=== PATIENT | male | born 1965 | race African-American/Black ===

== ENCOUNTER 2025-01-10 21:16 | Observation (INO) | payer OTHER, SELFPAY ==
--- OUTSIDE RECORDS SUMMARY | 2013-08-30 21:33 | XMS_ITS | Continuity of Care Document ---
Author Organization [facility] Address [address] [place] [address] Phone Care Team Providers Care Geodetic Advisor Name Role Phone Nurse, Registered Unavailable Unavailable Allergies, Adverse Reactions, Alerts Substance Reaction Status Criticality No Known allergies Medications Medication Instructions Dosage Effective Dates (start - stop) Status Comments lisinopril 30 mg tablet take 1 tablet by oral route every day 30 MG - Active hydrochlorothiazide 25 mg tablet take 1 tablet by oral route every day 25 MG - Active Paxil 20 mg tablet take 1 tablet by oral route every day 20 MG - Active Procedures Procedure Date OFFICE/OUTPATIENT VISIT, EST Advance Directives Directive Yes / No Effective Date File Name No Information Encounters Encounter Description Practice Location Reason(s) For Visit Diagnoses Date Provider Providers Copied on Encounter [facility], [address], [place], [place], [id number] , tel: [phone] Alf No Information Nurse Registered. [address], [place], [place], [address], . tel:[phone] [facility], [address], [place], [place], [id number] , tel: [phone] [facility] No Information 3 No Information [facility], [address], [place], [place], [id number] , tel: [phone] [facility] No Information 3 No Information OFFICE/OUTPA TIENT VISIT, EST [facility], [address], [place], [place], [address] , tel: [phone] [facility] hypertension (chief complaint) Unspecified essential hypertensionDep ressive disorder, NEC 3 No Information Family History Family Member Type Diagnosis Age At Onset No Information Payers Payer name Insurance type Covered democrat ID Authoriza tion(s) No Information Social History Type Description Quantity Date Captured Comments Sex Male Smoking Status No Information Chief Complaint And Reason For Visit No Information Reason For Referral Reason For Referral No Information History Of Present Illness Encounter Date Complaint History Of Prese nt Illness No Information Functional Status Date Functional Assessmen t No Information Instructions Date Instruction Additional Infor mation Increase activity level Home blood pressure check Take medications as prescribed Assessments Type Assessment Date No Information Patient Care Teams Name Effective Dates (start - stop) Status Members No Information
--- NOTE | ~2025-01-10 | CT_ITS ---
EXAMINATION: CT brain wo con, 01/11/2025 3:00 CDT HISTORY: hypertension, seizure COMPARISON: No comparisons available. Technique: Axial images obtained of the brain without contrast. One or more of the following dose reduction techniques were used: automated exposure control, adjustment of the mA and/or kV according to patient size, use of iterative reconstruction technique. Findings: No acute infarct or parenchymal hemorrhage. No abnormal mass or mass effect. No midline shift. No extra-axial fluid collections. No hydrocephalus. Mastoid air cells unremarkable. Sinuses and orbits unremarkable. No acute fracture. No significant facial or scalp soft tissue swelling evident. No radiopaque foreign body is seen. Impression: 1.No acute intracranial abnormality. Reviewed, dictated and finalized at location A. Impression: 1.No acute intracranial abnormality.
--- NOTE | ~2025-01-10 | CT_ITS ---
EXAMINATION: CT brain wo con DATE: 01/10/2025 22:39 INDICATION: Altered mental status. TECHNIQUE: Computed tomography (CT) of the head was performed without intravenous contrast. The mA was adjusted according to patient size. Iterative reconstruction technique was employed. The dose-length product was 681.00 mGy-cm. COMPARISON: None FINDINGS: There is no intracranial hemorrhage, acute infarction, or abnormal intracranial mass lesion. There is a 2.2 x 1.7 cm arachnoid cyst to the left of the midbrain. The ventricles are normal in size. There is mild mucosal thickening in the paranasal sinuses. There is an old blowout fracture of medial wall of right orbit. There is a trace left mastoid effusion. IMPRESSION: 1. No acute intracranial pathology. Reviewed, dictated and finalized at location E.
--- NOTE | ~2025-01-10 | XR_ITS ---
EXAMINATION: XR chest 1V portable COMPARISON: No comparisons available. HISTORY: Fever FINDINGS: The lungs are clear, no effusion. No pneumothorax. Heart is normal size. Mediastinal and hilar contours are within normal limits. Bony thorax no acute abnormality. Miscellaneous: None Impression: No acute cardiopulmonary abnormality. Reviewed, dictated and finalized at location A. Impression: No acute cardiopulmonary abnormality.
--- NOTE | ~2025-01-10 | MR_ITS ---
EXAMINATION: MR brain/brain stem wo/w con DATE: 01/12/2025 15:13 INDICATION: Seizures. TECHNIQUE: Magnetic resonance imaging (MRI) of the brain and brainstem was performed without and with 11 mL MultiHance intravenous contrast. COMPARISON: Head CT 01/11/2025 FINDINGS: There are dystrophic calcifications in right basal ganglia and left frontal lobe. There are scattered areas of nonspecific increased T2-weighted signal intensity in the cerebral white matter, which is within normal limits for the patient's age. There is a 2.3 x 1.7 cm arachnoid cyst to the left of the midbrain. There is no acute intracranial hemorrhage or acute infarction. There is a 5 mm lesion in left frontal lobe with faint contrast enhancement and decreased susceptibility weighted signal intensity in the left frontal lobe. The ventricles are normal in size. The orbits are normal. There is mild mucosal thickening in the paranasal sinuses. There is a small left mastoid effusion. IMPRESSION: 1. Small enhancing lesion in the left frontal lobe, which may be a cavernoma, telangiectasia, or neoplasm. Reviewed, dictated and finalized at location E. IMPRESSION: 1. Small enhancing lesion in the left frontal lobe, which may be a cavernoma, t elangiectasia, or neoplasm.
[2025-01-10 21:18] VITALS: BP 209/99; PULSE 54; RESP 18; TEMP 36.3; O2SAT 100
--- NOTE | 2025-01-10 21:25 | ECG_ITS ---
Test Date: 2025-01-10 21:27:17 Measurements Intervals [place] Rate: 50 P: 67 FL: 137 QRS: 42 QRSD: 78 T: 69 QT: 469 QTc: 431 Interpretive Statements SINUS BRADYCARDIA CANNOT EXCLUDE PREVIOUS SEPTAL [place] BORDERLINE ECG No previous ECG available for comparison Electronically Signed On 01-11-2025 12:22:42 CDT by Bernard Pedersen M.D.
[2025-01-10 21:37] VITALS: BP 209/99; PULSE 54; RESP 18; TEMP 36.3; O2SAT 100
[2025-01-10 21:41] LABS: Hematocrit 42.4 % (42.0-52.0); Hemoglobin 13.8 g/dL (14.0-18.0); Immature Granulocyte Percent A 0.2 % (0-0.5); Lymphocytes Absolute Auto 1.29 K/mm3 (0.9-3.2); Mean Corpuscular HGB Conc 32.5 g/dl (32-36); Mean Corpuscular Hemoglobin 28.5 pg (26-34); Mean Corpuscular Volume 87.6 fl (80-100); Nucleated Red Blood Cells Absolute Auto 0.000 K/mm3 (0.0-0.012); Nucleated Red Blood Cells Perc 0.0 % (0.0-0.2); Platelet Count Result 217 k/mm3 (150-375); Red Blood Count 4.84 M/mm3 (4.6-6.20); White Blood Count 4.1 K/mm3 (4.5-10.0)
[2025-01-10 21:56] LABS: Alanine Aminotransferase 23 U/L (6-50); Albumin Level 4.5 g/dL (3.5-5.1); Alkaline Phosphatase 78 U/L (38-126); Anion Gap 9 mmol/L (4-12); Aspartate Amino Transferase 37 U/L (17-59); Bilirubin,Total 1.1 mg/dL (0.2-1.3); Blood Urea Nitrogen 14 mg/dL (9-20); Calcium 9.1 mg/dL (8.4-10.2); Carbon Dioxide 27 mmol/L (22-30); Chloride 102 mmol/L (98-107); Estimated CRCL calculation 57 ml/min; Estimated Glomerular Filt Rate > 60; Glucose 109 mg/dL (65-110); Potassium 4.1 mmol/L (3.4-5.0); Sodium 138 mmol/L (137-145); Total Protein 7.8 g/dL (6.3-8.2)
[2025-01-10 21:57] LABS: INR 1.1; Partial Thromboplastin Time 26.2 Seconds (22.3-36.8); Prothrombin Time 14.0 Seconds (11.1-14.7)
--- NOTE | 2025-01-10 22:36 | ED.AMS ---
HPI - Altered Mental Status General Chief Complaint: Altered Mental Status <Mary Umana PA-C - Last Filed: 01/11/25 03:12> Stated Complaint: NOT ACTING RIGHT; BLANK STARE <Mary Umana PA-C - Last Filed: 01/11/25 03:12> Time Seen by Provider: 01/10/25 22:20 <Mary Umana PA-C - Last Filed: 01/11/25 03:12> Source: patient <Mary Umana PA-C - Last Filed: 01/11/25 03:12> Mode of arrival: EMS <Mary Umana PA-C - Last Filed: 01/11/25 03:12> Limitations: altered mental status <Mary Umana PA-C - Last Filed: 01/11/25 03:12> History of Present Illness HPI narrative: This is a 59 year old male that presents to the ER for altered mental status. Patient was being booked at the [facility] and they noted he seemed confused, staring off. Patient alter and orient at this time. Reports history of hypertension. He has not taken his blood pressure medication in a couple of days. No pain, complaints currently. <Mary Umana PA-C - Last Filed: 01/11/25 03:12> Related Data Allergies/Adverse Reactions: Allergies Allergy/AdvReac Type Severity Reaction Status Date / Time No Known Allergies Allergy Verified 01/11/25 00:01 <Mary Umana PA-C - Last Filed: 01/11/25 03:12> Review of Systems Review of Systems: All systems reviewed & are unremarkable except as noted in HPI and below <Mary Umana PA-C - Last Filed: 01/11/25 03:12> [facility] Past Medical History Medical History: Medical History (Updated 01/11/25 @ 03:12 by Mary Umana PA-C) Hypertension <Mary Umana PA-C - Last Filed: 01/11/25 03:12> Exam Narrative: GENERAL: Well-appearing, well-nourished, and in no acute distress. HEAD: Normocephalic, atraumatic. EYES: PERRLA and EOMI. ENT: Nares clear, no rhinorrhea or epistaxis. Mucous membranes moist. Oropharynx without tonsillar hypertrophy exudate or other lesions. Bilateral TMs pearly boyle non-bulging NECK: Supple. No adenopathy or masses. CHEST: Clear to auscultation. No respiratory distress. No wheezes rales or rhonchi HEART: Regular rate and rhythm. No murmur heard. Normal peripheral pulses. ABDOMEN: Soft, nontender, nondistended, normal active bowel sounds. EXTREMITIES: Normal range of motion. No edema. Strength equal in bilateral upper and lower extremities (5/5) SKIN: Warm, dry, no rash. NEURO: No focal deficits. Alert and oriented x3. Cranial nerves 2-12 grossly intact PSYCH: Normal mood and affect <Mary Umana PA-C - Last Filed: 01/11/25 03:12> Course Course Emergency Course: Called to bedside as patient appears to have had a seizure. Patient appears post ictal, drowsy. Hypertensive, tachycardic, profusely sweating. Concerned for possible alcohol withdrawal. Given Keppra, Valium, phenobarbital. <Mary Umana PA-C - Last Filed: 01/11/25 03:12> WOMEN'S APPAREL SALESPERSON/PA Physician Supervision This visit was performed by both a physician and an APC; I performed all aspects of the medical decision making component of this evaluation as documented. <Sue Lee MD - Last Filed: 01/11/25 03:39> Vital Signs Vital signs: Vital Signs Temperature 97.4 F L 01/10/25 21:18 Pulse Rate 54 L 01/10/25 21:18 Respiratory Rate 18 01/10/25 21:18 Blood Pressure 209/99 H 01/10/25 21:18 Pulse Oximetry 100 01/10/25 21:18 Oxygen Delivery Room Air 01/10/25 21:18 Temperature 97.4 F L 01/10/25 21:37 Pulse Rate 76 01/11/25 02:53 Respiratory Rate 18 01/11/25 02:53 Blood Pressure 191/111 H 01/11/25 02:53 Pulse Oximetry 100 01/11/25 02:53 Oxygen Delivery Room Air 01/11/25 00:30 <Mary Umana PA-C - Last Filed: 01/11/25 03:12> Vital Signs Temperature 97.4 F L 01/10/25 21:18 Pulse Rate 54 L 01/10/25 21:18 Respiratory Rate 18 01/10/25 21:18 Blood Pressure 209/99 H 01/10/25 21:18 Pulse Oximetry 100 01/10/25 21:18 Oxygen Delivery Room Air 01/10/25 21:18 Temperature 97.4 F L 01/10/25 21:37 Pulse Rate 76 01/11/25 02:53 Respiratory Rate 18 01/11/25 02:53 Blood Pressure 191/111 H 01/11/25 02:53 Pulse Oximetry 100 01/11/25 02:53 Oxygen Delivery Room Air 01/11/25 00:30 <Sue Lee MD - Last Filed: 01/11/25 03:39> MDM - Altered Mental Status MDM Narrative Medical decision making narrative: 59M here from longterm for bizarre behavior, high blood pressure; workup essentially unremarkable, patient then had a possible seizure here in the ER (on monitors his heart rate shot, and when we went to the room, he appeared to be postictal, diaphoretic. He is now becoming more awake and coming more to baseline. He is quite hypertensive and tachycardic, we do have high suspicion for alcohol withdrawal causing all the symptoms, especially since his alcohol level here is negative and he was in longterm all day. After dose of phenobarbital here, his symptoms have completely resolved, blood pressure is now 130s over 80s, heart rate down ascites, resting very comfortably now. I do feel he needs to be admitted, repeat CT brain obtained per two needle machine operator request, is negative. Decal Applier feels patient is stable for IMU. Discussed with hospitalist for admission. <Sue Lee MD - Last Filed: 01/11/25 03:39> Differential Diagnosis Differential diagnosis: Likely alcoholic intoxication, altered mental status, delirium, subarachnoid hemorrhage, sepsis and other (seizure, alcohol withdrawal, substance abuse, intoxication) <Mary Umana PA-C - Last Filed: 01/11/25 03:12> Lab Data Attestation: I reviewed the patient's lab results. <Mary Umana PA-C - Last Filed: 01/11/25 03:12> Result diagrams: 01/11/25 02:51 01/11/25 02:51 <Mary Umana PA-C - Last Filed: 01/11/25 03:12> Labs: Lab Results 01/10/25 01/10/25 01/10/25 Range/Units 21:28 21:30 23:59 WBC 4.1 L (4.5-10.0) K/mm3 RBC 4.84 (4.6-6.20) M/mm3 Hgb 13.8 L (14.0-18.0) g/dL Hct 42.4 (42.0-52.0) % MCV 87.6 (80-100) fl MCH 28.5 (26-34) pg MCHC 32.5 (32-36) g/dl RDW 13.3 (11.5-14.5) % Plt Count 217 (150-375) k/mm3 MPV 10.3 (7.4-10.4) fl Immature Gran % (Auto) 0.2 (0-0.5) % Neut % (Auto) 58.8 (45.5-73.1) % Lymph % (Auto) 31.5 (18.3-44.2) % Bowie % (Auto) 8.8 H (2.6-8.5) % Eos % (Auto) 0.2 (0-4.4) % Baso % (Auto) 0.5 (0.2-1.2) % Lymph # (Auto) 1.29 (0.9-3.2) K/mm3 Bowie # (Auto) 0.4 (0.1-0.6) K/mm3 Eos # (Auto) 0.0 (0-0.3) K/mm3 Baso # (Auto) 0.0 (0.0-0.1) K/mm3 Abs Immat Gran (auto) 0.01 (0.00-0.031) K/mm3 Absolute Neuts (auto) 2.4 (1.3-6.7) K/mm3 Absolute Nucleated RBC 0.000 (0.0-0.012) K/mm3 Nucleated RBC % 0.0 (0.0-0.2) % PT 14.0 (11.1-14.7) Seconds INR 1.1 APTT 26.2 (22.3-36.8) Seconds Sodium 138 (137-145) mmol/L Potassium 4.1 (3.4-5.0) mmol/L Chloride 102 (98-107) mmol/L Carbon Dioxide 27 (22-30) mmol/L Anion Gap 9 (4-12) mmol/L BUN 14 (9-20) mg/dL Creatinine 1.12 (0.7-1.3) mg/dL Estim Creat Clear Calc 57 ml/min Estimated GFR > 60 (59 - ) Glucose 109 (65-110) mg/dL POC Capillary Glucose 109 H (65-105) mg/dl Lactic Acid (0.7-2.0) mmol/L Calcium 9.1 (8.4-10.2) mg/dL Phosphorus (2.5-4.5) mg/dL Magnesium (1.6-2.3) mg/dL Total Bilirubin 1.1 (0.2-1.3) mg/dL AST 37 (17-59) U/L ALT 23 (6-50) U/L Alkaline Phosphatase 78 (38-126) U/L Ammonia (9-30) umol/L Total Creatine Kinase (55-170) U/L Total Protein 7.8 (6.3-8.2) g/dL Albumin 4.5 (3.5-5.1) g/dL Prolactin Urine Color Yellow (Yellow) Urine Appearance Clear (Clear) Urine pH 7.5 (5.0-9.0) Ur Specific [place] 1.020 (1.001-1.035) Urine Protein 1+ H (Negative) mg/dL Urine Glucose (UA) Trace H (Negative) mg/dL Urine Ketones 1+ H (Negative) mg/dL Ur Blood (Man) Negative (Negative) Urine Nitrate Negative (Negative) Urine Bilirubin Negative (Negative) Urine Urobilinogen 1.0 (<2.0) mg/dL Leukocyte Esterase Rfl Negative (Negative) MARY/UL Urine RBC 0-2 (0-2) /hpf Urine WBC 0-5 (0-3) /hpf Ur Squamous Epith Cells None seen (Few) /hpf Urine Bacteria None seen /hpf Urine Casts 0-2 Urine Opiates Screen Negative (Negative) Urine Methadone Screen Negative (Negative) Ur Barbiturates Screen Negative (Negative) Ur Phencyclidine Scrn Negative (Negative) Ur Amphetamine Screen Negative (Negative) U Benzodiazepines Scrn Negative (Negative) Urine Cocaine Screen Negative (Negative) U Cannabinoids Screen Positive A (Negative) Ethyl Alcohol < 10 (<10) mg/dL 01/11/25 01/11/25 01/11/25 Range/Units 00:33 00:43 00:49 WBC (4.5-10.0) K/mm3 RBC (4.6-6.20) M/mm3 Hgb (14.0-18.0) g/dL Hct (42.0-52.0) % MCV (80-100) fl MCH (26-34) pg MCHC (32-36) g/dl RDW (11.5-14.5) % Plt Count (150-375) k/mm3 MPV (7.4-10.4) fl Immature Gran % (Auto) (0-0.5) % Neut % (Auto) (45.5-73.1) % Lymph % (Auto) (18.3-44.2) % Bowie % (Auto) (2.6-8.5) % Eos % (Auto) (0-4.4) % Baso % (Auto) (0.2-1.2) % Lymph # (Auto) (0.9-3.2) K/mm3 Bowie # (Auto) (0.1-0.6) K/mm3 Eos # (Auto) (0-0.3) K/mm3 Baso # (Auto) (0.0-0.1) K/mm3 Abs Immat Gran (auto) (0.00-0.031) K/mm3 Absolute Neuts (auto) (1.3-6.7) K/mm3 Absolute Nucleated RBC (0.0-0.012) K/mm3 Nucleated RBC % (0.0-0.2) % PT (11.1-14.7) Seconds INR APTT (22.3-36.8) Seconds Sodium (137-145) mmol/L Potassium (3.4-5.0) mmol/L Chloride (98-107) mmol/L Carbon Dioxide (22-30) mmol/L Anion Gap (4-12) mmol/L BUN (9-20) mg/dL Creatinine (0.7-1.3) mg/dL Estim Creat Clear Calc ml/min Estimated GFR (59 - ) Glucose (65-110) mg/dL POC Capillary Glucose 145 H (65-105) mg/dl Lactic Acid 19.9 H* (0.7-2.0) mmol/L Calcium (8.4-10.2) mg/dL Phosphorus (2.5-4.5) mg/dL Magnesium 2.0 (1.6-2.3) mg/dL Total Bilirubin (0.2-1.3) mg/dL AST (17-59) U/L ALT (6-50) U/L Alkaline Phosphatase (38-126) U/L Ammonia (9-30) umol/L Total Creatine Kinase 465 H (55-170) U/L Total Protein (6.3-8.2) g/dL Albumin (3.5-5.1) g/dL Prolactin Urine Color (Yellow) Urine Appearance (Clear) Urine pH (5.0-9.0) Ur Specific [place] (1.001-1.035) Urine Protein (Negative) mg/dL Urine Glucose (UA) (Negative) mg/dL Urine Ketones (Negative) mg/dL Ur Blood (Man) (Negative) Urine Nitrate (Negative) Urine Bilirubin (Negative) Urine Urobilinogen (<2.0) mg/dL Leukocyte Esterase Rfl (Negative) MARY/UL Urine RBC (0-2) /hpf Urine WBC (0-3) /hpf Ur Squamous Epith Cells (Few) /hpf Urine Bacteria /hpf Urine Casts Urine Opiates Screen (Negative) Urine Methadone Screen (Negative) Ur Barbiturates Screen (Negative) Ur Phencyclidine Scrn (Negative) Ur Amphetamine Screen (Negative) U Benzodiazepines Scrn (Negative) Urine Cocaine Screen (Negative) U Cannabinoids Screen (Negative) Ethyl Alcohol (<10) mg/dL 01/11/25 Range/Units 02:51 WBC 6.5 (4.5-10.0) K/mm3 RBC 5.02 (4.6-6.20) M/mm3 Hgb 14.3 (14.0-18.0) g/dL Hct 45.2 (42.0-52.0) % MCV 90.0 (80-100) fl MCH 28.5 (26-34) pg MCHC 31.6 L (32-36) g/dl RDW 13.4 (11.5-14.5) % Plt Count 179 (150-375) k/mm3 MPV 10.3 (7.4-10.4) fl Immature Gran % (Auto) 0.3 (0-0.5) % Neut % (Auto) 83.1 H (45.5-73.1) % Lymph % (Auto) 10.6 L (18.3-44.2) % Bowie % (Auto) 5.5 (2.6-8.5) % Eos % (Auto) 0.0 (0-4.4) % Baso % (Auto) 0.5 (0.2-1.2) % Lymph # (Auto) 0.69 L (0.9-3.2) K/mm3 Bowie # (Auto) 0.4 (0.1-0.6) K/mm3 Eos # (Auto) 0.0 (0-0.3) K/mm3 Baso # (Auto) 0.0 (0.0-0.1) K/mm3 Abs Immat Gran (auto) 0.02 (0.00-0.031) K/mm3 Absolute Neuts (auto) 5.4 (1.3-6.7) K/mm3 Absolute Nucleated RBC 0.000 (0.0-0.012) K/mm3 Nucleated RBC % 0.0 (0.0-0.2) % PT (11.1-14.7) Seconds INR APTT (22.3-36.8) Seconds Sodium 138 (137-145) mmol/L Potassium 3.7 (3.4-5.0) mmol/L Chloride 107 (98-107) mmol/L Carbon Dioxide 16 L (22-30) mmol/L Anion Gap 15 H (4-12) mmol/L BUN 12 (9-20) mg/dL Creatinine 1.09 (0.7-1.3) mg/dL Estim Creat Clear Calc 58 ml/min Estimated GFR > 60 (59 - ) Glucose 87 (65-110) mg/dL POC Capillary Glucose (65-105) mg/dl Lactic Acid 6.8 H* (0.7-2.0) mmol/L Calcium 9.1 (8.4-10.2) mg/dL Phosphorus 1.8 L (2.5-4.5) mg/dL Magnesium 2.3 (1.6-2.3) mg/dL Total Bilirubin 1.3 (0.2-1.3) mg/dL AST 38 (17-59) U/L ALT 27 (6-50) U/L Alkaline Phosphatase 81 (38-126) U/L Ammonia 63 H (9-30) umol/L Total Creatine Kinase 445 H (55-170) U/L Total Protein 8.0 (6.3-8.2) g/dL Albumin 4.7 (3.5-5.1) g/dL Prolactin Pending Urine Color (Yellow) Urine Appearance (Clear) Urine pH (5.0-9.0) Ur Specific [place] (1.001-1.035) Urine Protein (Negative) mg/dL Urine Glucose (UA) (Negative) mg/dL Urine Ketones (Negative) mg/dL Ur Blood (Man) (Negative) Urine Nitrate (Negative) Urine Bilirubin (Negative) Urine Urobilinogen (<2.0) mg/dL Leukocyte Esterase Rfl (Negative) MARY/UL Urine RBC (0-2) /hpf Urine WBC (0-3) /hpf Ur Squamous Epith Cells (Few) /hpf Urine Bacteria /hpf Urine Casts Urine Opiates Screen (Negative) Urine Methadone Screen (Negative) Ur Barbiturates Screen (Negative) Ur Phencyclidine Scrn (Negative) Ur Amphetamine Screen (Negative) U Benzodiazepines Scrn (Negative) Urine Cocaine Screen (Negative) U Cannabinoids Screen (Negative) Ethyl Alcohol (<10) mg/dL <Mary Umana PA-C - Last Filed: 01/11/25 03:12> Lab Results 01/10/25 01/10/25 01/10/25 Range/Units 21:28 21:30 23:59 WBC 4.1 L (4.5-10.0) K/mm3 RBC 4.84 (4.6-6.20) M/mm3 Hgb 13.8 L (14.0-18.0) g/dL Hct 42.4 (42.0-52.0) % MCV 87.6 (80-100) fl MCH 28.5 (26-34) pg MCHC 32.5 (32-36) g/dl RDW 13.3 (11.5-14.5) % Plt Count 217 (150-375) k/mm3 MPV 10.3 (7.4-10.4) fl Immature Gran % (Auto) 0.2 (0-0.5) % Neut % (Auto) 58.8 (45.5-73.1) % Lymph % (Auto) 31.5 (18.3-44.2) % Bowie % (Auto) 8.8 H (2.6-8.5) % Eos % (Auto) 0.2 (0-4.4) % Baso % (Auto) 0.5 (0.2-1.2) % Lymph # (Auto) 1.29 (0.9-3.2) K/mm3 [place] # (Auto) 0.4 (0.1-0.6) K/mm3 Eos # (Auto) 0.0 (0-0.3) K/mm3 Baso # (Auto) 0.0 (0.0-0.1) K/mm3 Abs Immat Gran (auto) 0.01 (0.00-0.031) K/mm3 Absolute Neuts (auto) 2.4 (1.3-6.7) K/mm3 Absolute Nucleated RBC 0.000 (0.0-0.012) K/mm3 Nucleated RBC % 0.0 (0.0-0.2) % PT 14.0 (11.1-14.7) Seconds INR 1.1 APTT 26.2 (22.3-36.8) Seconds Sodium 138 (137-145) mmol/L Potassium 4.1 (3.4-5.0) mmol/L Chloride 102 (98-107) mmol/L Carbon Dioxide 27 (22-30) mmol/L Anion Gap 9 (4-12) mmol/L BUN 14 (9-20) mg/dL Creatinine 1.12 (0.7-1.3) mg/dL Estim Creat Clear Calc 57 ml/min Estimated GFR > 60 (59 - ) Glucose 109 (65-110) mg/dL POC Capillary Glucose 109 H (65-105) mg/dl Lactic Acid (0.7-2.0) mmol/L Calcium 9.1 (8.4-10.2) mg/dL Phosphorus (2.5-4.5) mg/dL Magnesium (1.6-2.3) mg/dL Total Bilirubin 1.1 (0.2-1.3) mg/dL AST 37 (17-59) U/L ALT 23 (6-50) U/L Alkaline Phosphatase 78 (38-126) U/L Ammonia (9-30) umol/L Total Creatine Kinase (55-170) U/L Total Protein 7.8 (6.3-8.2) g/dL Albumin 4.5 (3.5-5.1) g/dL Prolactin Urine Color Yellow (Yellow) Urine Appearance Clear (Clear) Urine pH 7.5 (5.0-9.0) Ur Specific [place] 1.020 (1.001-1.035) Urine Protein 1+ H (Negative) mg/dL Urine Glucose (UA) Trace H (Negative) mg/dL Urine Ketones 1+ H (Negative) mg/dL Ur Blood (Man) Negative (Negative) Urine Nitrate Negative (Negative) Urine Bilirubin Negative (Negative) Urine Urobilinogen 1.0 (<2.0) mg/dL Leukocyte Esterase Rfl Negative (Negative) MARY/UL Urine RBC 0-2 (0-2) /hpf Urine WBC 0-5 (0-3) /hpf Ur Squamous Epith Cells None seen (Few) /hpf Urine Bacteria None seen /hpf Urine Casts 0-2 Urine Opiates Screen Negative (Negative) Urine Methadone Screen Negative (Negative) Ur Barbiturates Screen Negative (Negative) Ur Phencyclidine Scrn Negative (Negative) Ur Amphetamine Screen Negative (Negative) U Benzodiazepines Scrn Negative (Negative) Urine Cocaine Screen Negative (Negative) U Cannabinoids Screen Positive A (Negative) Ethyl Alcohol < 10 (<10) mg/dL 01/11/25 01/11/25 01/11/25 Range/Units 00:33 00:43 00:49 WBC (4.5-10.0) K/mm3 RBC (4.6-6.20) M/mm3 Hgb (14.0-18.0) g/dL Hct (42.0-52.0) % MCV (80-100) fl MCH (26-34) pg MCHC (32-36) g/dl RDW (11.5-14.5) % Plt Count (150-375) k/mm3 MPV (7.4-10.4) fl Immature Gran % (Auto) (0-0.5) % Neut % (Auto) (45.5-73.1) % Lymph % (Auto) (18.3-44.2) % Bowie % (Auto) (2.6-8.5) % Eos % (Auto) (0-4.4) % Baso % (Auto) (0.2-1.2) % Lymph # (Auto) (0.9-3.2) K/mm3 Bowie # (Auto) (0.1-0.6) K/mm3 Eos # (Auto) (0-0.3) K/mm3 Baso # (Auto) (0.0-0.1) K/mm3 Abs Immat Gran (auto) (0.00-0.031) K/mm3 Absolute Neuts (auto) (1.3-6.7) K/mm3 Absolute Nucleated RBC (0.0-0.012) K/mm3 Nucleated RBC % (0.0-0.2) % PT (11.1-14.7) Seconds INR APTT (22.3-36.8) Seconds Sodium (137-145) mmol/L Potassium (3.4-5.0) mmol/L Chloride (98-107) mmol/L Carbon Dioxide (22-30) mmol/L Anion Gap (4-12) mmol/L BUN (9-20) mg/dL Creatinine (0.7-1.3) mg/dL Estim Creat Clear Calc ml/min Estimated GFR (59 - ) Glucose (65-110) mg/dL POC Capillary Glucose 145 H (65-105) mg/dl Lactic Acid 19.9 H* (0.7-2.0) mmol/L Calcium (8.4-10.2) mg/dL Phosphorus (2.5-4.5) mg/dL Magnesium 2.0 (1.6-2.3) mg/dL Total Bilirubin (0.2-1.3) mg/dL AST (17-59) U/L ALT (6-50) U/L Alkaline Phosphatase (38-126) U/L Ammonia (9-30) umol/L Total Creatine Kinase 465 H (55-170) U/L Total Protein (6.3-8.2) g/dL Albumin (3.5-5.1) g/dL Prolactin Urine Color (Yellow) Urine Appearance (Clear) Urine pH (5.0-9.0) Ur Specific [place] (1.001-1.035) Urine Protein (Negative) mg/dL Urine Glucose (UA) (Negative) mg/dL Urine Ketones (Negative) mg/dL Ur Blood (Man) (Negative) Urine Nitrate (Negative) Urine Bilirubin (Negative) Urine Urobilinogen (<2.0) mg/dL Leukocyte Esterase Rfl (Negative) MARY/UL Urine RBC (0-2) /hpf Urine WBC (0-3) /hpf Ur Squamous Epith Cells (Few) /hpf Urine Bacteria /hpf Urine Casts Urine Opiates Screen (Negative) Urine Methadone Screen (Negative) Ur Barbiturates Screen (Negative) Ur Phencyclidine Scrn (Negative) Ur Amphetamine Screen (Negative) U Benzodiazepines Scrn (Negative) Urine Cocaine Screen (Negative) U Cannabinoids Screen (Negative) Ethyl Alcohol (<10) mg/dL 01/11/25 Range/Units 02:51 WBC 6.5 (4.5-10.0) K/mm3 RBC 5.02 (4.6-6.20) M/mm3 Hgb 14.3 (14.0-18.0) g/dL Hct 45.2 (42.0-52.0) % MCV 90.0 (80-100) fl MCH 28.5 (26-34) pg MCHC 31.6 L (32-36) g/dl RDW 13.4 (11.5-14.5) % Plt Count 179 (150-375) k/mm3 MPV 10.3 (7.4-10.4) fl Immature Gran % (Auto) 0.3 (0-0.5) % Neut % (Auto) 83.1 H (45.5-73.1) % Lymph % (Auto) 10.6 L (18.3-44.2) % Bowie % (Auto) 5.5 (2.6-8.5) % Eos % (Auto) 0.0 (0-4.4) % Baso % (Auto) 0.5 (0.2-1.2) % Lymph # (Auto) 0.69 L (0.9-3.2) K/mm3 Bowie # (Auto) 0.4 (0.1-0.6) K/mm3 Eos # (Auto) 0.0 (0-0.3) K/mm3 Baso # (Auto) 0.0 (0.0-0.1) K/mm3 Abs Immat Gran (auto) 0.02 (0.00-0.031) K/mm3 Absolute Neuts (auto) 5.4 (1.3-6.7) K/mm3 Absolute Nucleated RBC 0.000 (0.0-0.012) K/mm3 Nucleated RBC % 0.0 (0.0-0.2) % PT (11.1-14.7) Seconds INR APTT (22.3-36.8) Seconds Sodium 138 (137-145) mmol/L Potassium 3.7 (3.4-5.0) mmol/L Chloride 107 (98-107) mmol/L Carbon Dioxide 16 L (22-30) mmol/L Anion Gap 15 H (4-12) mmol/L BUN 12 (9-20) mg/dL Creatinine 1.09 (0.7-1.3) mg/dL Estim Creat Clear Calc 58 ml/min Estimated GFR > 60 (59 - ) Glucose 87 (65-110) mg/dL POC Capillary Glucose (65-105) mg/dl Lactic Acid 6.8 H* (0.7-2.0) mmol/L Calcium 9.1 (8.4-10.2) mg/dL Phosphorus 1.8 L (2.5-4.5) mg/dL Magnesium 2.3 (1.6-2.3) mg/dL Total Bilirubin 1.3 (0.2-1.3) mg/dL AST 38 (17-59) U/L ALT 27 (6-50) U/L Alkaline Phosphatase 81 (38-126) U/L Ammonia 63 H (9-30) umol/L Total Creatine Kinase 445 H (55-170) U/L Total Protein 8.0 (6.3-8.2) g/dL Albumin 4.7 (3.5-5.1) g/dL Prolactin Pending Urine Color (Yellow) Urine Appearance (Clear) Urine pH (5.0-9.0) Ur Specific [place] (1.001-1.035) Urine Protein (Negative) mg/dL Urine Glucose (UA) (Negative) mg/dL Urine Ketones (Negative) mg/dL Ur Blood (Man) (Negative) Urine Nitrate (Negative) Urine Bilirubin (Negative) Urine Urobilinogen (<2.0) mg/dL Leukocyte Esterase Rfl (Negative) MARY/UL Urine RBC (0-2) /hpf Urine WBC (0-3) /hpf Ur Squamous Epith Cells (Few) /hpf Urine Bacteria /hpf Urine Casts Urine Opiates Screen (Negative) Urine Methadone Screen (Negative) Ur Barbiturates Screen (Negative) Ur Phencyclidine Scrn (Negative) Ur Amphetamine Screen (Negative) U Benzodiazepines Scrn (Negative) Urine Cocaine Screen (Negative) U Cannabinoids Screen (Negative) Ethyl Alcohol (<10) mg/dL <Sue Lee MD - Last Filed: 01/11/25 03:39> Imaging Data Radiologist's impression: CT brain: No acute intracranial hemorrhage. No midline shift or mass effect. The territorial boyle-white matter differentiation is maintained throughout. The ventricles and sulci are commensurate with age <Mary Umana PA-C - Last Filed: 01/11/25 03:12> Critical Care Time Critical Care Time Critical Care Time: Yes <Mary Umana PA-C - Last Filed: 01/11/25 03:12> Total Critical Care Time: 35 <Mary Umana PA-C - Last Filed: 01/11/25 03:12> 45 <Sue Lee MD - Last Filed: 01/11/25 03:39> Discharge Plan Discharge Clinical Impression: Seizure Altered mental status Qualifiers: Altered mental status type: unspecified Qualified Code(s): R41.82 - Altered mental status, unspecified <Mary Umana PA-C - Last Filed: 01/11/25 03:12> Patient Disposition: Still a Patient <Mary Umana PA-C - Last Filed: 01/11/25 03:12> Condition: Serious <Mary Umana PA-C - Last Filed: 01/11/25 03:12> Patient Language: Romansh <Mary Umana PA-C - Last Filed: 01/11/25 03:12> Follow-up/Referrals: UNKNOWN,DOCTOR [Primary Care Provider] <Mary Umana PA-C - Last Filed: 01/11/25 03:12>
[2025-01-10 23:00] VITALS: BP 223/102; PULSE 48; RESP 16; O2SAT 100
[2025-01-10 23:31] VITALS: BP 184/101; PULSE 63; RESP 19; O2SAT 100
[2025-01-11] VITALS (19 sets, daily range): BP systolic 142–224; BP diastolic 77–119; PULSE 73–131; RESP 15–30; TEMP 36.3–37.8; O2SAT 97–100; BMI 19.5
[2025-01-11] MEDS: Please add drug allergy info to patient profile. 1 EACH XX (00:02)
[2025-01-11 00:14] LABS: Add Urine Microscopic? YES; Appearance Urine Clear (Clear); Glucose Urine UA Trace mg/dL (Negative); Leukocyte Esterase Ur Negative LEU/UL (Negative); Nitrate Urine Negative (Negative); Non Pathogenic Casts 0-2; Specific Grav Ur 1.020 (1.001-1.035)
[2025-01-11] MEDS: diazePAM INJ (*CRX) 10 MG/2 ML SYRINGE 5 MG IV PUSH (00:30)
[2025-01-11 00:34] LABS: Cannabinoid Screen Urine Positive (Negative)
[2025-01-11] MEDS: levETIRAcetam 1000MG/NACL100ML 1,000 MG/100 ML BAG 400 MG IVPB (00:35)
[2025-01-11] MEDS: PHENobarbitaL sodium (*CRX) 130 MG/ML VIAL 260 MG IV PUSH (00:56)
[2025-01-11] MEDS: SODIUM CHLORIDE 0.9% IV 1,000 ML 999 ML (01:00)
[2025-01-11 01:06] LABS: Creatine Kinase 465 U/L (55-170)
--- NOTE | 2025-01-11 01:23 | PC.NURSE ---
At approximately 0025, this RN looked at the patient monitor and noticed pt heart rate increasing between 120s and 210s. Upon entering pt room, this RN found patient extremely diaphoretic with snoring respirations and hypersalivating. SOHAN Hernandez notified and came to bedside. VORB for 5mg IV diazepam, 1000mg keppra, and 260mg phenobarbital. 2nd IV, lactic, and 1st set of blood cultures obtained at this time.
[2025-01-11] MEDS: THIAMINE 500 MG/NS 100 ML 500 MG/100 ML BAG 200 MG IVPB (01:44)
--- NOTE | 2025-01-11 02:04 | P.HP_ITS ---
H&P: HPI History of Present Illness Date/Time: 01/11/25 02:04 Chief Complaint: Confusion, possible seizure Narrative: 59-year-old male with unknown PMH brought in from [facility] for possible seizure. No JERRY present upon my evaluation. History provided by ER clinician. Document brought in from the group home reports patient arrested because probation violation. Reports seizure? Urinated on himself, leg twitching. While in the ER the patient was providing minimal history and when asked why he was brought in he reports chicken. At some point, ER staff suspected seizure as he appeared to be postictal after his telemetry demonstrated tachycardia. Patient given Valium, phenobarbital, Keppra. Afterwards his lactic acid was 19. Blood pressure 224/95, improving to 154/91 after phenobarbital and Keppra. Sinus tachycardia also resolved. Afebrile. Saturating 97% on room air. Laboratory evaluation revealed WBC of 4.1, hemoglobin 13.8, INR 1.1, BUN 14, serum creatinine 1.12, magnesium not checked. CPK 465, glucose 145. Urinalysis trace glucose, 1+ ketones and protein. U tox positive for cannabinoids, serum alcohol level less than 10. Review of Systems Review of Systems: All systems reviewed & are unremarkable except as noted in HPI and below (Subjective) [facility] Past Medical History Medical History (Updated 01/11/25 @ 02:15 by Margaux Garcia MD) Hypertension Meds Home Medications and Allergies Allergies Allergy/AdvReac Type Severity Reaction Status Date / Time No Known Allergies Allergy Verified 01/11/25 00:01 Vital Signs Vital Signs - 24 hr 01/10/25 21:18 01/10/25 21:31 01/10/25 21:37 Temperature 97.4 F L 97.4 F L Pulse Rate 54 L 54 L Respiratory Rate 18 18 Blood Pressure 209/99 H 209/99 H Pulse Oximetry 100 100 Oxygen Delivery Room Air Room Air 01/10/25 23:00 01/10/25 23:31 01/11/25 00:00 Temperature Pulse Rate 48 L 63 74 Respiratory Rate 16 19 18 Blood Pressure 223/102 H 184/101 H 194/104 H Pulse Oximetry 100 100 100 Oxygen Delivery 01/11/25 00:30 01/11/25 00:30 01/11/25 00:51 Temperature Pulse Rate 131 H 116 H Respiratory Rate 30 H 24 H Blood Pressure 224/95 H 149/86 H Pulse Oximetry 97 97 97 Oxygen Delivery Room Air 01/11/25 01:20 Temperature Pulse Rate 94 Respiratory Rate 23 H Blood Pressure 154/91 H Pulse Oximetry 99 Oxygen Delivery Exam Const: Other: Fidgety, confused, incomprehensible speech, follows commands intermittently. HENMT: Other: Poor dentition, plaques Eyes: Pupils: Equal, round and reactive pupils present Neck: Neck: supple Resp: Effort & Inspection: normal respiratory effort Auscultation: clear to auscultation bilaterally Cardio: Rate: regular rate Rhythm: regular rhythm GI: Inspection: non-distended GI Palp: Yes Soft to palpation : General: Yes bladder normal to palpation Extrem: General: no edema H&P: Results Labs Labs: Short CBC 01/10/25 Range/Units 21:30 WBC 4.1 L (4.5-10.0) K/mm3 Hgb 13.8 L (14.0-18.0) g/dL Hct 42.4 (42.0-52.0) % Plt Count 217 (150-375) k/mm3 BMP 01/10/25 21:30 Sodium 138 Potassium 4.1 Chloride 102 Carbon Dioxide 27 BUN 14 Creatinine 1.12 Glucose 109 Calcium 9.1 Cardiac Enzymes 01/11/25 Range/Units 00:49 Total Creatine Kinase 465 H (55-170) U/L Liver Function 01/10/25 Range/Units 21:30 Total Bilirubin 1.1 (0.2-1.3) mg/dL AST 37 (17-59) U/L ALT 23 (6-50) U/L Alkaline Phosphatase 78 (38-126) U/L Albumin 4.5 (3.5-5.1) g/dL Urine 01/10/25 Range/Units 23:59 Urine Color Yellow (Yellow) Urine Appearance Clear (Clear) Urine pH 7.5 (5.0-9.0) Ur Specific Page 1.020 (1.001-1.035) Urine Protein 1+ H (Negative) mg/dL Urine Glucose (UA) Trace H (Negative) mg/dL Assessment and Plan Assessment and plan (1) Altered mental status: Code(s): R41.82 - Altered mental status, unspecified Status: Acute (2) Lactic acidosis: Code(s): E87.20 - Acidosis, unspecified Status: Acute (3) Elevated CPK: Code(s): R74.8 - Abnormal levels of other serum enzymes Status: Acute Plan 59-year-old male with PMH hypertension, otherwise unknown brou ght in from [facility] for possible seizure. No JERRY present upon my evaluation. History provided by ER clinician. Document brought in from the group home reports patient arrested because probation violation. Reports seizure? Urinated on himself, leg twitching. While in the ER the patient was providing minimal history and when asked why he was brought in he reports chicken. At some point, ER staff suspected seizure as he appeared to be postictal after his telemetry demonstrated tachycardia in upon evaluation he was hypertensive, tachycardic, diaphoretic, drowsy and altered. Patient given Valium, phenobarbital, Keppra. Afterwards his lactic acid was 19. CT head without acute abnormalities. Blood pressure 224/95, improving to 154/91 after phenobarbital and Keppra. Sinus tachycardia also resolved. Afebrile. Saturating 97% on room air. Laboratory evaluation revealed WBC of 4.1, hemoglobin 13.8, INR 1.1, BUN 14, serum creatinine 1.12, magnesium not checked. CPK 465, glucose 145. Urinalysis trace glucose, 1+ ketones and protein. U tox positive for cannabinoids, serum alcohol level less than 10. ----- Seizure suspected. Neurology consultation pending. Consider MRI as well. Received Keppra 1000 mg IV x1. Continue Keppra 500 mg IV b.i.d. It is unclear whether the patient is abusing any illicit substances which are not detected on 10 panel drug screen such as K2, Kratom, synthetic fentanyl, etc. Positive for cannabinoids. Consult care coordination. His alcohol level is normal, unclear if his symptoms are due to alcohol withdrawal or seizure or other substances. Pending a repeat CT of the head he will be admitted to IMU with close monitoring and telemetry. Proceed with CIWA protocol. He received thiamine 500 mg IV x1, continue thiamine 100 mg q.day, folic acid 1 mg q.day, multivitamin. NPO, Accu-Cheks q.6 hours, seizure and aspiration precautions. D5 normal saline at 150 cc/hour. Check magnesium, ammonia level. ----- Full code. Fall and aspiration and seizure precautions. Bed rest. NPO. D5 normal saline. Accu-Cheks q.6 hours. Care coordination to assist. Protonix 40 mg q.a.m.. SCDs. Hospitalist [facility] Advance Care Plan I have confirmed that the patient's Advanced Care Plan is present, code status is documented, or surrogate decision maker is listed in patient medical record.: Yes Medication Reconciliation I have utilized all available resources to obtain, update and review the patients current medications (includes all prescriptions, OTC, herbals, cannabis, and nutritional supplements).: Yes
--- NOTE | 2025-01-11 02:10 | PC.NURSE ---
After multiple unsuccessful sticks, this RN was asked to call phlebotomy for pt's new labs. Phlebotomy notified and will come attempt draw on patient.
[2025-01-11 02:24] LABS: Magnesium 2.0 mg/dL (1.6-2.3)
[2025-01-11] MEDS: PANTOPRAZOLE SODIUM IV 40 MG VIAL IV PUSH (02:52)
[2025-01-11] MEDS: DEXTROSE 5%/0.9% SOD CHL 1,000 ML 150 ML IV CONT ×2 (02:52→11:11)
[2025-01-11] MEDS: FOLIC ACID 1 MG/0.2 ML INJ IV PUSH (02:52)
[2025-01-11 02:59] LABS: Hematocrit 45.2 % (42.0-52.0); Hemoglobin 14.3 g/dL (14.0-18.0); Immature Granulocyte Percent A 0.3 % (0-0.5); Lymphocytes Absolute Auto 0.69 K/mm3 (0.9-3.2); Mean Corpuscular HGB Conc 31.6 g/dl (32-36); Mean Corpuscular Hemoglobin 28.5 pg (26-34); Mean Corpuscular Volume 90.0 fl (80-100); Nucleated Red Blood Cells Absolute Auto 0.000 K/mm3 (0.0-0.012); Nucleated Red Blood Cells Perc 0.0 % (0.0-0.2); Platelet Count Result 179 k/mm3 (150-375); Red Blood Count 5.02 M/mm3 (4.6-6.20); White Blood Count 6.5 K/mm3 (4.5-10.0)
[2025-01-11 03:09] LABS: Ammonia 63 umol/L (9-30)
[2025-01-11 03:10] LABS: Creatine Kinase 445 U/L (55-170)
[2025-01-11 03:16] LABS: Alanine Aminotransferase 27 U/L (6-50); Albumin Level 4.7 g/dL (3.5-5.1); Alkaline Phosphatase 81 U/L (38-126); Anion Gap 15 mmol/L (4-12); Aspartate Amino Transferase 38 U/L (17-59); Bilirubin,Total 1.3 mg/dL (0.2-1.3); Blood Urea Nitrogen 12 mg/dL (9-20); Calcium 9.1 mg/dL (8.4-10.2); Carbon Dioxide 16 mmol/L (22-30); Chloride 107 mmol/L (98-107); Estimated CRCL calculation 58 ml/min; Estimated Glomerular Filt Rate > 60; Glucose 87 mg/dL (65-110); Magnesium 2.3 mg/dL (1.6-2.3); Potassium 3.7 mmol/L (3.4-5.0); Sodium 138 mmol/L (137-145); Total Protein 8.0 g/dL (6.3-8.2)
--- NOTE | 2025-01-11 05:10 | ADMGEN ---
This patient, Teodora Francisco, was admitted to IMU Room 207-01. Patient/family oriented to hospital policies and general routines including ID bracelet, bed and alarms, visiting hours, pain management, procedures, bathroom and other care routines, personal items, smoking policy, room service/diet, and visiting hours. Information on how to activate the Rapid Response Team has been discussed. Patient/Family are encouraged to report perceived risks to care and to ask questions if they do not understand what they are told or what they should do.
--- NOTE | 2025-01-11 05:32 | PC.NURSE ---
Patient states he has been taking high blood pressure medication that he gets at [facility] in [place], [place]. He does not know what and there is noone who can look at his bottles.
--- NOTE | 2025-01-11 08:50 | P.PNIM_ITS ---
Progress Note: A&P Assessment and Plan (1) Altered mental status: Qualifiers: Altered mental status type: unspecified Qualified Code(s): R41.82 - Altered mental status, unspecified Code(s): R41.82 - Altered mental status, unspecified Status: Acute (2) Lactic acidosis: Code(s): E87.20 - Acidosis, unspecified Status: Acute (3) Elevated CPK: Code(s): R74.8 - Abnormal levels of other serum enzymes Status: Acute Plan 59-year-old male with PMH hypertension, otherwise unknown brought in from [facility] for possible seizure. History provided by ER clinician. Document brought in from the correction reports patient arrested because probation violation. Reports seizure? Urinated on himself, leg twitching. While in the ER the patient was providing minimal history and when asked why he was brought in he reports chicken. At some point, ER staff suspected seizure as he appeared to be postictal after his telemetry de monstrated tachycardia in upon evaluation he was hypertensive, tachycardic, diaphoretic, drowsy and altered. Patient given Valium, phenobarbital, Keppra. Afterwards his lactic acid was 19. CT head without acute abnormalities. Blood pressure 224/95, improving to 154/91 after phenobarbital and Keppra. Sinus tachycardia also resolved. Afebrile. Saturating 97% on room air. Laboratory evaluation revealed WBC of 4.1, hemoglobin 13.8, INR 1.1, BUN 14, serum creatinine 1.12, magnesium not checked. CPK 465, glucose 145. Urinalysis trace glucose, 1+ ketones and protein. U tox positive for cannabinoids, serum alcohol level less than 10. # suspected seizure. Neurology consulted. CT head negative. Will get without. Loaded with Keppra 1000 mg IV x1 will continue 1000 mg b.i.d. as ordered. UDS positive for cannabinoids all other negative. Alcohol level less than 10. He does have history of alcohol use. He drank alcohol 3 days ago. Seizures could be related to alcohol withdrawal. Will get brain MRI Continue with [facility] protocol Seizure precautions/aspiration precautions # lactic acidosis repeat to ensure normalization # fever will check UA and chest x-ray continue to monitor no signs of infection could be related to seizure. # hypertension continue home medication # Code status full code # DVT prophylaxis SCDs # code status full code Subjective Date/time seen: 01/11/25 08:50 Interval history: Patient awake and alert state he had seizure. History of seizure disorder. Unclear if he is compliant with medication. He recently was admitted for the same at [facility]. He left against medical advise there. He reports no cough. Review of Systems Review of Systems: All systems reviewed & are unremarkable except as noted in HPI and below (Subjective) Exam Narrative: GENERAL: Well-appearing, well-nourished, and in no acute distress. HEAD: Normocephalic, atraumatic. EYES: PERRLA and EOMI. ENT: Nares clear, no rhinorrhea or epistaxis. NECK: Supple. No adenopathy or masses. CHEST: Clear to auscultation. No respiratory distress. No wheezes rales or rhonchi HEART: Regular rate and rhythm. No murmur heard. Normal peripheral pulses. ABDOMEN: Soft, nontender, nondistended, normal active bowel sounds. EXTREMITIES: Normal range of motion. No edema. Strength equal in bilateral upper and lower extremities SKIN: Warm, dry, no rash. NEURO: No focal deficits. Alert and oriented x3. Cranial nerves 2-12 grossly intact PSYCH: Normal mood and affect Objective Data Vital Signs Vital Signs: Vital Signs - 24 hr 01/10/25 21:18 01/10/25 21:31 01/10/25 21:37 Temperature 97.4 F L 97.4 F L Pulse Rate 54 L 54 L Respiratory Rate 18 18 Blood Pressure 209/99 H 209/99 H Pulse Oximetry 100 100 Oxygen Delivery Room Air Room Air 01/10/25 23:00 01/10/25 23:31 01/11/25 00:00 Temperature Pulse Rate 48 L 63 74 Respiratory Rate 16 19 18 Blood Pressure 223/102 H 184/101 H 194/104 H Pulse Oximetry 100 100 100 Oxygen Delivery 01/11/25 00:30 01/11/25 00:30 01/11/25 00:51 Temperature Pulse Rate 131 H 116 H Respiratory Rate 30 H 24 H Blood Pressure 224/95 H 149/86 H Pulse Oximetry 97 97 97 Oxygen Delivery Room Air 01/11/25 01:20 01/11/25 02:53 01/11/25 04:18 Temperature Pulse Rate 94 76 85 Respiratory Rate 23 H 18 15 Blood Pressure 154/91 H 191/111 H 203/113 H Pulse Oximetry 99 100 100 Oxygen Delivery 01/11/25 05:24 01/11/25 05:37 01/11/25 06:10 Temperature 97.4 F L Pulse Rate 88 95 Respiratory Rate 15 Blood Pressure 165/119 H Pulse Oximetry 100 100 Oxygen Delivery Room Air 01/11/25 08:00 Temperature 100.1 F H Pulse Rate 102 H Respiratory Rate 20 Blood Pressure 157/89 H Pulse Oximetry 100 Oxygen Delivery Intake/Output Intake/Output: Intake & Output 01/08/25 01/09/25 01/10/25 01/11/25 23:59 23:59 23:59 23:59 Intake Total 1200 Output Total 300 Balance 900 Meds/Results Medications: Active Medications Generic Name Dose Route Start Last Admin Trade Name Freq PRN Reason Stop Dose Admin Diazepam 5 mg 01/11/25 02:02 Diazepam Inj (*Crx) 10 Mg/2 Ml Syringe IV PUSH Q2H PRN CIWA > 15 Folic Acid 1 mg 01/11/25 02:00 01/11/25 02:52 Folic Acid 1 Mg/0.2 Ml Inj IV PUSH 1 mg QAM SABINE Administration Dextrose/Sodium Chloride 1,000 mls @ 150 mls/hr 01/11/25 02:00 01/11/25 02:52 Dextrose 5% Sodium Chloride 0.9% IV CONT 150 mls/hr .[id number] SABINE Administration Levetiracetam 500 mg in 100 mls @ 400 mls/hr 01/11/25 09:00 Keppra Iv IVPB Q12HR SABINE Multivitamins Therapeutic 1 tablet 01/11/25 09:00 Multivitamins Therapeutic Tab (*Bkc) PO QAM SABINE Pantoprazole Sodium 40 mg 01/11/25 02:20 01/11/25 02:52 Pantoprazole Sodium Iv 40 Mg Vial IV PUSH 40 mg DAILY SABINE Administration Thiamine HCl 100 mg 01/12/25 09:00 Thiamine Hcl 200 Mg/2 Ml Vial IV PUSH QAM SABINE Radiology Results: ITS Impressions Head CT 01/11/25 08:23 IMPRESSION: 1. No acute intracranial pathology. Labs Labs: Laboratory Results - last 24 hr 01/10/25 01/10/25 01/10/25 21:28 21:30 23:59 WBC 4.1 L RBC 4.84 Hgb 13.8 L Hct 42.4 MCV 87.6 MCH 28.5 MCHC 32.5 RDW 13.3 Plt Count 217 MPV 10.3 Immature Gran % (Auto) 0.2 Neut % (Auto) 58.8 Lymph % (Auto) 31.5 [place] % (Auto) 8.8 H Eos % (Auto) 0.2 Baso % (Auto) 0.5 Lymph # (Auto) 1.29 [place] # (Auto) 0.4 Eos # (Auto) 0.0 Baso # (Auto) 0.0 Abs Immat Gran (auto) 0.01 Absolute Neuts (auto) 2.4 Absolute Nucleated RBC 0.000 Nucleated RBC % 0.0 PT 14.0 INR 1.1 APTT 26.2 Sodium 138 Potassium 4.1 Chloride 102 Carbon Dioxide 27 Anion Gap 9 BUN 14 Creatinine 1.12 Estim Creat Clear Calc 57 Estimated GFR > 60 Glucose 109 POC Capillary Glucose 109 H Lactic Acid Calcium 9.1 Phosphorus Magnesium Total Bilirubin 1.1 AST 37 ALT 23 Alkaline Phosphatase 78 Ammonia Total Creatine Kinase Total Protein 7.8 Albumin 4.5 Urine Color Yellow Urine Appearance Clear Urine pH 7.5 Ur Specific [place] 1.020 Urine Protein 1+ H Urine Glucose (UA) Trace H Urine Ketones 1+ H Ur Blood (Man) Negative Urine Nitrate Negative Urine Bilirubin Negative Urine Urobilinogen 1.0 Leukocyte Esterase Rfl Negative Urine RBC 0-2 Urine WBC 0-5 Ur Squamous Epith Cells None seen Urine Bacteria None seen Urine Casts 0-2 Urine Opiates Screen Negative Urine Methadone Screen Negative Ur Barbiturates Screen Negative Ur Phencyclidine Scrn Negative Ur Amphetamine Screen Negative U Benzodiazepines Scrn Negative Urine Cocaine Screen Negative U Cannabinoids Screen Positive A Ethyl Alcohol < 10 01/11/25 01/11/25 01/11/25 00:33 00:43 00:49 WBC RBC Hgb Hct MCV MCH MCHC RDW Plt Count MPV Immature Gran % (Auto) Neut % (Auto) Lymph % (Auto) [place] % (Auto) Eos % (Auto) Baso % (Auto) Lymph # (Auto) [place] # (Auto) Eos # (Auto) Baso # (Auto) Abs Immat Gran (auto) Absolute Neuts (auto) Absolute Nucleated RBC Nucleated RBC % PT INR APTT Sodium Potassium Chloride Carbon Dioxide Anion Gap BUN Creatinine Estim Creat Clear Calc Estimated GFR Glucose POC Capillary Glucose 145 H Lactic Acid 19.9 H* Calcium Phosphorus Magnesium 2.0 Total Bilirubin AST ALT Alkaline Phosphatase Ammonia Total Creatine Kinase 465 H Total Protein Albumin Urine Color Urine Appearance Urine pH Ur Specific [place] Urine Protein Urine Glucose (UA) Urine Ketones Ur Blood (Man) Urine Nitrate Urine Bilirubin Urine Urobilinogen Leukocyte Esterase Rfl Urine RBC Urine WBC Ur Squamous Epith Cells Urine Bacteria Urine Casts Urine Opiates Screen Urine Methadone Screen Ur Barbiturates Screen Ur Phencyclidine Scrn Ur Amphetamine Screen U Benzodiazepines Scrn Urine Cocaine Screen U Cannabinoids Screen Ethyl Alcohol 01/11/25 02:51 WBC 6.5 RBC 5.02 Hgb 14.3 Hct 45.2 MCV 90.0 MCH 28.5 MCHC 31.6 L RDW 13.4 Plt Count 179 MPV 10.3 Immature Gran % (Auto) 0.3 Neut % (Auto) 83.1 H Lymph % (Auto) 10.6 L [place] % (Auto) 5.5 Eos % (Auto) 0.0 Baso % (Auto) 0.5 Lymph # (Auto) 0.69 L [place] # (Auto) 0.4 Eos # (Auto) 0.0 Baso # (Auto) 0.0 Abs Immat Gran (auto) 0.02 Absolute Neuts (auto) 5.4 Absolute Nucleated RBC 0.000 Nucleated RBC % 0.0 PT INR APTT Sodium 138 Potassium 3.7 Chloride 107 Carbon Dioxide 16 L Anion Gap 15 H BUN 12 Creatinine 1.09 Estim Creat Clear Calc 58 Estimated GFR > 60 Glucose 87 POC Capillary Glucose Lactic Acid 6.8 H* Calcium 9.1 Phosphorus 1.8 L Magnesium 2.3 Total Bilirubin 1.3 AST 38 ALT 27 Alkaline Phosphatase 81 Ammonia 63 H Total Creatine Kinase 445 H Total Protein 8.0 Albumin 4.7 Urine Color Urine Appearance Urine pH Ur Specific [place] Urine Protein Urine Glucose (UA) Urine Ketones Ur Blood (Man) Urine Nitrate Urine Bilirubin Urine Urobilinogen Leukocyte Esterase Rfl Urine RBC Urine WBC Ur Squamous Epith Cells Urine Bacteria Urine Casts Urine Opiates Screen Urine Methadone Screen Ur Barbiturates Screen Ur Phencyclidine Scrn Ur Amphetamine Screen U Benzodiazepines Scrn Urine Cocaine Screen U Cannabinoids Screen Ethyl Alcohol
[2025-01-11] MEDS: levETIRAcetam 500MG/NACL 100ML 500 MG/100 ML BAG 400 MG IVPB (09:18)
[2025-01-11] MEDS: MULTIVITAMINS THERAPEUTIC TAB (*BKC) 1 TABLET PO (09:18)
--- OUTSIDE RECORDS SUMMARY | 2025-01-11 10:30 | XMS_ITS | Clinical Summary ---
Author Organization [facility] Address [address] [place] [address] Phone Care Team Providers Care Lead Cargo Mover Name Role Phone Provider, None Primary Care Provider Unavailabl e Allergies No known active allergies Medications HYDROcodone-acet aminophen (NORCO) 5-325 MG Tablet Take 1 Tab by mouth every 4 hours as needed for Severe pain. 28 Tab 07/09/2019 Active enalapril (VASOTEC) 20 MG Tablet Take 1 Tab by mouth daily. 30 Tab 1 07/09/2019 Active Social History Tobacco Use Types Packs/Day Years Used Date Smoking Tobacco: Never Smokeless Tobacco: Never Alcohol Use Standard Drinks/Week Comments Not Currently 0 (1 standard drink = 0.6 oz pur e alcohol) occasional Sex and Gender Information Value Date Recorded Sex Assigned at Not on file Legal Sex Male 10:39 PM CDT Gender Identity Not on file Sexual Orientation Not on file Last Filed Vital Signs Vital Sign Reading Time Taken Comments Blood Pressure 167/92 07/15/2024 7:45 AM CDT Pulse 120 07/15/2024 7:45 AM CDT Temperature 36.7 C (98.1 F) 07/15/2024 7:45 AM CDT Respiratory Rate 18 07/15/2024 7:45 AM CDT Oxygen Saturation 100% 07/15/2024 7:45 AM CDT Inhaled Oxygen Concentration - - Weight 54.4 kg (120 lb) 07/15/2024 7:45 AM CDT Height 170.2 cm (5' 7) 07/15/2024 7:45 AM CDT Body Mass Index 18.79 07/15/2024 7:45 AM CDT Plan of Treatment Not on file Insurance MEDICAID [employer] Care Teams Lead Cargo Mover Relationship Specialty Start Date End Date Provider, None [place] PCP - General 06/01/17
--- OUTSIDE RECORDS SUMMARY | 2025-01-11 10:30 | XMS_ITS | Clinical Summary ---
Author Organization [facility] Address [address] [place] [id number] Care Team Providers Care Harness Puller Name Role Phone Unavailable Primary Care Provider Unavailabl e Social History Tobacco Use Types Packs/Day Years Used Date Smoking Tobacco: Never Assessed Sex and Gender Information Value Date Recorded Sex Assigned at Not on file Legal Sex Male 7:21 PM CDT Gender Identity Not on file Sexual Orientation Not on file Plan of Treatment Health Maintenance Due Date Last Done Comments Colorectal Cancer Screening Colonoscopy (10 Years) 1967 Annual Physical 1970 Hepatitis C 1985 DTaP, Tdap and Td Vaccines ( 1 - Tdap) 1986 Hepatitis B Vaccines (1 of 3 - 19+ 3-dose series) 1986 Pneumococcal Vaccine: 50+ Ye ars (1 of 1 - PCV) 2017 Zoster Vaccines (1 of 2) 2017 COVID-19 Vaccine ( - 2023-2 5 season) 2024 Meningococcal B Vaccine Aged Out No l onger eligible based on patient's age to complete this topic Meningococcal Vaccine Aged Out No tatiana fausto eligible based on patient's age to complete this topic RSV Immunizations Under 20 Months Aged Out No longer eligible based on patient's age to complete this topic
--- OUTSIDE RECORDS SUMMARY | 2025-01-11 10:30 | XMS_ITS | Encounter Summary ---
Author Organization 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 Name Role Phone Unavailable Primary Care Provider Unavailabl e Encounter Details Date Type Department Care Team (Late st Contact Info) Description 07/05/2017 Abstract [facility] CONVERSION [address] [place] [address] , Generic Conversion, Social History Tobacco Use Types Packs/Day Years Used Date Smoking Tobacco: Never Assessed Sex and Gender Information Value Date Recorded Sex Assigned at Not on file Legal Sex Male 7:21 PM CDT Gender Identity Not on file Sexual Orientation Not on file documented as of this encounter Plan of Treatment Not on file documented as of this encounter Visit Diagnoses Not on filedocumented in this encounter
--- OUTSIDE RECORDS SUMMARY | 2025-01-11 10:30 | XMS_ITS | Patient Health Record ---
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 Oral ([facility]) 04/23/2011 Active CeleXA 20 MG take 1 tablet (20MG) by oral route every day Oral ([facility]) 04/23/2011 Active Enalapril Maleate 5 MG take 1 tablet (5M G) by oral route every day Oral ([facility]) 04/23/2011 Active hydroCHLOROthiazide 25 MG take 1 tablet (25MG) by oral route every day Oral ([facility]) 04/23/2011 Active Problems Problem Type SNOMED Code ICD Code Onset Dates Problem Status W/U Status Risk Notes Problem Depressive disorder (02725774) Depressive disorder, not elsewhere classified (311) 04/21/19 11 Active confirmed ([facility]) Added By: Su Suárez Problem Benign essential hypertension (7126354) Essential hypertension, benign (401.1) 04/23/19 12 Active confirmed ([facility]) Added By: Su Suárez Plan Of Treatment No Information
--- OUTSIDE RECORDS SUMMARY | 2025-01-11 10:30 | XMS_ITS | Clinical Summary ---
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 Role Phone Cheryl Gurrola NP Primary Care Provider [phone] Allergies No known active allergies Medications folic acid (FOLVITE) 1 mg tablet Take 1 tablet (1 mg total) by mouth daily 30 tablet 11 10/10/2022 Active multivit bdhqvhvc-jnvj-MX -calcium (THERA-M) 9 mg iron-400 mcg tabletIndication s:Vitamin Deficiency Prevention Take 1 tablet by mouth daily 30 tablet 3 10/10/2022 Active OLANZapine (ZyPREXA) 10 mg tablet Take 1 tablet (10 mg total) by mouth 2 (two) times a day 60 tablet 10/09/2022 Active thiamine (VITAMIN B-1) 250 mg tablet Take 1 tablet (250 mg total) by mouth daily 30 tablet 11 10/10/2022 Active levETIRAcetam (KEPPRA) 1,000 mg tablet Take 1 tablet (1,000 mg total) by mouth 2 (two) times a day 60 tablet 11 10/28/2024 Active lisinopriL (PRINIVIL,ZESTRI L) 40 mg tablet Take 1 tablet (40 mg total) by mouth daily 30 tablet 10/28/2024 Active carvediloL (COREG) 25 mg tablet Take 1 tablet (25 mg total) by mouth 2 (two) times a day with meals 60 tablet 1 10/29/2024 Active hydrALAZINE (APRESOLINE) 25 mg tabletIndication s:hypertension Take 1 tablet (25 mg total) by mouth 3 (three) times a day 90 tablet 1 10/29/2024 Active Active Problems Problem Noted Date Diagnosed Date Hypertensive urgency 12/17/2024 Seizure 10/26/2024 Withdrawal seizures, with delirium 05/11/2024 Altered mental status 06/11/2023 Alcohol withdrawal seizure with complication Metabolic acidosis, increased anion gap 06/10/19 24 Acute metabolic encephalopathy 06/10/2023 Post-ictal state 06/10/2023 Hypertension 10/08/2022 Alcohol withdrawal seizure with perceptual distu rbance 10/04/2022 Gram-negative pneumonia 05/12/2022 Cavitary lesion of lung 05/10/2022 Hypertensive emergency 05/10/2022 Fever Resolved Problems Problem Noted Date Diagnosed Date Resolved Date Lactic acid acidosis 06/10/2023 024 Moderate malnutrition 05/11/20222024 Encounters Date Type Department Care Team Description 12/17/2024 12:26 PM CDT - 12/18/2024 2:34 PM CDT Hospital Encounter [facility] IMU [address] [place] [address] Claudia Kelly MD Hanson, Thomas S., MD Davis, MD Chilo Perez II, Narine, MD Seizure (HCC) (Primary Dx); Uncontrolled hypertension; Alcohol withdrawal syndrome with complication (HCC) Discharge Disposition: Left Against Medical Advice 10/27/2024 Documentation [facility] Warm Hand Off Program [address] [place], [place] [phone] Ashwin Clemente 10/26/2024 6:38 PM CDT - 10/29/2024 5:00 PM CDT Hospital Encounter [facility] Medical Care [address] [place] [address] Bonifacio Inman MD Nations, Matthew Austin, DO Seizure (HCC) (Primary Dx) Discharge Disposition: Discharge to home or self care from Last 3 Months Medical History Medical History Date Comments Hypertension Social History Tobacco Use Types Packs/Day Years Used Date Smoking Tobacco: Never Tobacco Cessation:Counseling Given: Not Answered Alcohol Use Standard Drinks/Week Comments Yes 10 (1 standard drink = 0.6 oz pu re alcohol) [facility] Utilities Answer Date Recorded In the past 12 months has e electric, gas, oil, or water company threatened to shut off services in your home? No 10/27/2024 Social Connection and Isolation Panel Answer Date Recorded In a typical week, how many times do you talk on the phone with family, friends, or neighbors? More than three times a week 10/27/2024 How often do you get togethe r with friends or relatives? Twice a week 10/27/2024 How often do you attend chur ch or church services? 1 to 4 times per year 10/27/2024 Do you belong to any clubs o r organizations such as buddhism groups, unions, fraternal or athletic groups, or school groups? No 10/27/2024 How often do you attend meet ings of the clubs or organizations you belong to? Never 10/27/2024 Are you , , di vorced, , never , or living with a partner? 10/27/2024 Overall Financial Resource Strain (CARDIA) Answe r Date Recorded How hard is it for you to pa y for the very basics like food, housing, medical care, and heating? Not hard at all 10/27/2024 Hunger Vital Sign Answer Date Recorded Within the past 12 months, y ou worried that your food would run out before you got the money to buy more. Never true 10/28/19 25 Within the past 12 months, t he food you bought just didn't last and you didn't have money to get more. Never true 10/27/2024 PRAPARE - Transportation Answer Date Re corded In the past 12 months, has l ack of transportation kept you from medical appointments or from getting medications? No 12/2024 In the past 12 months, has l ack of transportation kept you from meetings, work, or from getting things needed for daily living? No 10/27/2024 Housing Stability Vital Sign Answer Edis e Recorded In the last 12 months, was t here a time when you were not able to pay the mortgage or rent on time? No 06/11/2023 In the last 12 months, how many places have you lived? 1 06/11/2023 In the last 12 months, was t here a time when you did not have a steady place to sleep or slept in a mcfp (including now)? No 06/11/2023 Housing Stability Vital Sign Answer Edis e Recorded In the last 12 months, was t here a time when you were not able to pay the mortgage or rent on time? No 10/27/2024 In the past 12 months, how m any times have you moved where you were living? 0 10/27/2024 At any time in the past 12 m [facility], were you homeless or living in a mcfp (including now)? No 10/27/2024 AUDIT-C Answer Date Recorded Q1: How often do you have a drink containing alc ohol? 2-3 times a week 12/17/2024 Q2: How many drinks containi ng alcohol do you have on a typical day when you are drinking? 5 or 6 12/17/2024 Q3: How often do you have si x or more drinks on one occasion? Never 12/17/2024 Personal Safety Answer Date Recorded Have you ever been in or are you currently in a harmful physical or emotional relationship or is someone making you feel afraid or unsafe? Denies 12/17/2024 Education Answer Date Recorded What is the highest level of school you have completed or the highest degree you have received? 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 [employer]CH[employer]IC[employer] Gender Identity Not on file Sexual Orientation Not on file Obstetrics History Last Filed Vital Signs Vital Sign Reading Time Taken Comments Blood Pressure 141/86 12/18/2024 9:00 AM CDT Pulse 79 12/18/2024 9:00 AM CDT Temperature 36.9 C (98.4 F) 12/18/2024 9:00 AM CDT Respiratory Rate 18 12/18/2024 9:00 AM CDT Oxygen Saturation 99% 12/18/2024 9:00 AM CDT Inhaled Oxygen Concentration - - Weight 63.5 kg (139 lb 15.9 oz) 12/17/2024 3:50 PM CDT Height 170.2 cm (5' 7) 12/17/2024 3:50 PM CDT Body Mass Index 21.93 12/17/2024 3:50 PM CDT Plan of Treatment Health Maintenance Due Date Last Done Comments Colon Cancer Screening-Colonoscopy 1967 Depression Screening 1967 Hepatitis C Screening 1967 Prostate Cancer Screening-PSA 1967 DTaP/Tdap/Td Vaccine (1 - Tdap) 1978 Hepatitis B Screening 1985 Regular Well Visit/Exam 18-64 1985 Zoster Vaccine (1 of 2) 2017 Influenza Vaccine (#1) 2024 Pneumococcal vaccine <65 Aged Out No longer eligible based on patient's age to complete this topic Procedures Procedure Name Priority Date/Time Associated Diagnosis Comments DRUGS OF ABUSE SCREEN, URINE WITHOUT CONFIRMATION STAT 12/18/2024 9:39 AM CDT URINALYSIS AND REFLEX TO MICROSCOPIC AND CULTURE STAT 12/18/2024 9:39 AM CDT EGFR Routine 12/18/2024 2:29 AM CDT DIFFERENTIAL AUTO Routine 12/18/2024 2:2 9 AM CDT COMPREHENSIVE METABOLIC PANEL Routine 12/18/2024 2:29 AM CDT CBC WITH AUTO DIFFERENTIAL Routine 12/18/2024 2:29 AM CDT [place] CRIT[facility] C[facility] ILL/INJURED PATIENT INIT 30-74 MIN Routine 12/17/2024 6:54 PM CDT TROPONIN T HIGH-SENSITIVITY 4-HR Timed 12/17/2024 4:29 PM CDT TROPONIN T HIGH-SENSITIVITY 2-HOUR Timed 12/17/2024 2:[address] HEAD WO CONTRAST ED 12/17/2024 1 :23 PM CDT XR CHEST 1 VIEW ED 12/17/2024 1:04 PM CDT ECG 12-LEAD STAT 12/17/2024 12:56 PM CDT LEVETIRACETAM LEVEL Add-On 12/17/2024 1 2:41 PM CDT EGFR STAT 12/17/2024 12:41 PM CDT DIFFERENTIAL AUTO STAT 12/17/2024 12: 41 PM CDT TROPONIN T HIGH-SENSITIVITY SERIES (BASELINE, 2HR, 4HR, 6HR) STAT 12/17/2024 12:41 PM CDT ETHANOL STAT 12/17/2024 12:41 PM CDT COMPREHENSIVE METABOLIC PANEL STAT 12/17/2024 12:41 PM CDT CBC WITH AUTO DIFFERENTIAL STAT 12/17/2024 12:41 PM CDT SEPSIS LACTATE WITH REFLEX STAT 12/17/2024 12:41 PM CDT EEG Routine 10/27/2024 9:35 AM CDT EGFR Routine 10/27/2024 4:31 AM CDT DIFFERENTIAL AUTO Routine 10/27/2024 4:3 1 AM CDT LACTATE Routine 10/27/2024 4:31 AM CDT COMPREHENSIVE METABOLIC PANEL Routine 10/27/2024 4:31 AM CDT CBC WITH AUTO DIFFERENTIAL Routine 10/27/2024 4:31 AM CDT TROPONIN T HIGH-SENSITIVITY 6-HOUR Timed 10/27/2024 4:31 AM CDT TROPONIN T HIGH-SENSITIVITY 4-HR Timed 10/27/2024 12:36 AM CDT URINALYSIS, MICROSCOPIC ONLY STAT 10/27/2024 12:13 AM CDT DRUGS OF ABUSE SCREEN, URINE WITHOUT CONFIRMATION STAT 10/27/2024 12:13 AM CDT URINALYSIS AND REFLEX TO MICROSCOPIC AND CULTURE STAT 10/27/2024 12:13 AM CDT SEPSIS LACTATE WITH REFLEX Timed 10/26/2024 11:12 PM CDT TROPONIN T HIGH-SENSITIVITY 2-HOUR Timed 10/26/2024 11:12 PM CDT EGFR STAT 10/26/2024 8:22 PM CDT ETHANOL STAT 10/26/2024 8:22 PM CDT TROPONIN T HIGH-SENSITIVITY SERIES (BASELINE, 2HR, 4HR, 6HR) STAT 10/26/2024 8:22 PM CDT COMPREHENSIVE METABOLIC PANEL STAT 10/26/2024 8:22 PM CDT SEPSIS LACTATE WITH REFLEX Timed 10/26/2024 8:[address] HEAD WO CONTRAST ED 10/26/2024 7 :47 PM CDT XR CHEST 1 VIEW ED 10/26/2024 7:15 PM CDT DIFFERENTIAL AUTO STAT 10/26/2024 7:0 9 PM CDT SEPSIS LACTATE WITH REFLEX STAT 10/26/2024 7:09 PM CDT CBC WITH AUTO DIFFERENTIAL STAT 10/26/2024 7:09 PM CDT ECG 12-LEAD STAT 10/26/2024 6:52 PM CDT from Last 3 Months Results * Urinalysis reflex to microscopic and culture Urine (12/18/2024 9:39 AM CDT) Color, ur Yellow Yellow Clarity, ur Clear Clear [facility] ([place]) Specific gravity, ur 1.026 1.003 - 1.030 [facility] ([place]) pH, urine 6.5 [facility] ([place]) Comment: Interpretive Data U rine pH is affected by diet, medications, systemic acid-base disturbances, and renal tubular function. pH may affect urinary stone formation. For example, urine pH below 6.0 may help reduce the tendency for calcium phosphate stones and pH greater than 6.0 may reduce the tendency for uric acid stone formation. Source: [facility] Current Interpretive Data was last revised on 2017 Protein, ur ql Negative Negative [facility] ([place]) Glucose, ur ql Negative Negative [facility] ([place]) Ketones, ur Negative Negative [facility] ([place]) Bilirubin, ur Negative Negative [facility] ([place]) Blood, ur Negative Negative [facility] ([place]) Urobilinogen, ur <2.0 <2.0 mg/dL [facility] ([place]) Nitrite, ur Negative Negative [facility] ([place]) Leukocyte esterase, ur Negative Negative [facility] ([place]) UA reflex comment Reflex conditions for microscopic UA and culture not met. [facility] ([place]) Urine 12/18/2024 9:39 AM CDT 12/18/2024 9:42 AM CDT Osman Arriaga MD LAB MICROBIOLOGY - [facility] Final Result [facility] ([place]) [facility] Department [place] [address] * (ABNORMAL) Drugs of Abuse Screen, Urine without Confirmation (12/18/2024 9:39 AM CDT) Amphetamine, ur Not Detected CutOff 500ng/mL [facility] ([place]) Comment: Interpretive Data - Amphetamines: Samples containing greater than 500 ng/mL d-methamphetamine or other cross-reacting amphetamine compounds are reported as positive. Amphetamine immunoassays are subject to significant false positive rates due to cross-reactivity of non-amphetamine drugs. Confirmatory testing required for definitive results. Current Interpretive Data was last reviewed 2022. Barbiturates, ur Not Detected CutOff 200ng/mL [facility] ([place]) Comment: Interpretive Data - Barbiturates: Samples containing greater than 200 ng/mL secobarbital or other cross-reacting barbiturate compounds are reported as positive. False positive and false negative results are possible. Confirmatory testing required for definitive results. Current Interpretive Data was last reviewed 2022. Benzodiazepines, ur Screen Positive, presumptive (A) CutOff 100ng/mL [facility] ([place]) Comment: Interpretive Data - Benzodiazepines: Samples containing greater than 100 ng/mL nordiazepam or other cross-reacting compounds are reported as positive. False positive and false negative results are possible. Confirmatory testing required for definitive results. Current Interpretive Data was last reviewed 2022. Cannabinoids, ur Screen Positive, presumptive (A) CutOff 50 ng/mL [facility] ([place]) Comment: Interpretive Data - Cannabinoids: Samples containing greater than 50 ng/mL delta-9 THC -COOH or other cross- reacting compounds are reported as positive. False positive and false negative results are possible. Confirmatory testing required for definitive results. Current Interpretive Data was last reviewed 2022. Cocaine, ur Not Detected CutOff 150ng/mL [facility] ([place]) Comment: Interpretive Data - Cocaine: Samples containing greater than 150 ng/mL benzoylecgonine or other cross- reacting compounds are reported as positive. False positive and false negative results are possible. Confirmatory testing required for definitive results. Current Interpretive Data was last reviewed 2022. Fentanyl, Ur Not Detected CutOff 5 ng/mL [facility] ([place]) Comment: Interpretive Data - Fentanyl: Samples containing greater than 5 ng/mL norfentanyl, fentanyl, or other cross-reacting fentanyl compounds are reported as positive. False positive and false negative results are possible. Confirmatory testing required for definitive results. Current Interpretive Data was last reviewed 2023. Methadone, ur Not Detected CutOff 300ng/mL [facility] ([place]) Comment: Interpretive Data - Methadone: Samples containing greater than 300 ng/mL d,l-methadone or other cross-reacting compounds are reported as positive. False positive and false negative results are possible. Confirmatory testing required for definitive results. Current Interpretive Data was last reviewed 2022. Opiates, ur Not Detected CutOff 300ng/mL [facility] ([place]) Comment: Interpretive Data - Opiates: Samples containing greater than 300 ng/mL morphine or other cross-reacting compounds are reported as positive. False positive and false negative results are possible. Confirmatory testing required for definitive results. Current Interpretive Data was last reviewed 2022. Oxycodone, ur NOT DETECTED CutOff 100ng/mL [facility] ([place]) Comment: Interpretive Data - Oxycodone: Samples containing greater than 100 ng/mL oxycodone or other cross-reacting compounds are reported as positive. False positive and false negative results are possible. Confirmatory testing required for definitive results. Current Interpretive Data was last reviewed 2022. Phencyclidine, ur Not Detected CutOff 25 ng/mL [facility] ([place]) Comment: Interpretive Data - Phencyclidine: Samples containing greater than 25 ng/mL phencyclidine or other cross-reacting compounds are reported as positive. False positive and false negative results are possible. Confirmatory testing required for definitive results. Current Interpretive Data was last reviewed 2022. Urine Creatinine 289 mg/dL [facility] ([place]) Comment: Interpretive Data Urine Creatinine: < 10 mg/dL is extremely dilute = or > 10 but < 20 mg/dL is dilute = or > 20 mg/dL is normal Current Interpretive Data was last revised on 2017. Urine 12/18/2024 9:39 AM CDT 12/18/2024 9:42 AM CDT Narrative [facility] ([place]) - 12/18/2024 10:11 AM CDT Drug of Abuse screening is performed by immunoassay for medical purposes only. This is not to be used for Pain Management purposes. us Osman Arriaga MD LAB URINE ORDERABLES Final Resu lt [facility] ([place]) [facility] Department [place] [address] * eGFR (12/18/2024 2:29 AM CDT) eGFR 75 >=60 mL/min/1. 73 m2 Comment: Interpretive Data Reference Interval Normal >/= 90 mL/min/1.73m2 Mildly decreased* 60 - 89 mL/min/1.73m2 Mildly to moderately decreased 45 - 59 mL/min/1.73m2 Moderately to severely decreased 30 - 44 mL/min/1.73m2 Severely decreased 15 - 29 mL/min/1.73m2 Kidney Failure < 15 mL/min/1.73m2 *Relative to young adult level Estimated glomerular filtration rate is determined by the 2020 CKD-EPI equation recommended by the National Kidney Foundation (A Unifying Approach to GFR Estimation: Recommendations of the NKF-ASK Task Force on Reassessing the Inclusion of Race in Diagnosing Kidney Disease, JASN 2020). The CKD-EPI equation should not be used for patients with unstable renal function and has not been validated in children and those over 70. Current interpretive data was last reviewed 2021. Blood 12/18/2024 2:29 AM CDT 12/18/2024 3:02 AM CDT us Osman Arriaga MD LAB BLOOD ORDERABLES Final Resu lt [facility] ([place]) [facility] Department [place] [address] * Differential, auto (12/18/2024 2:29 AM CDT) Neutrophil abs 1.57 1.50 - 6.50 K/cumm Imm gran abs 0.00 0.00 - 0.10 K/cumm [facility] ([place]) Lymphocyte abs 1.58 0.80 - 3.30 K/cumm [facility] ([place]) Monocyte abs 0.31 0.20 - 0.80 K/cumm [facility] ([place]) Eosinophil abs 0.05 0.00 - 0.50 K/cumm [facility] ([place]) Basophil abs 0.05 0.00 - 0.10 K/cumm [facility] ([place]) Neutrophil pct 44.1 % [facility] ([place]) Comment: Interpretive Data Percent cell count reference ranges are not reported, since discordance with absolute values may lead to misinterpretation of CBC data. Current Interpretive Data was last revised on 2017. Imm gran pct 0.0 % [facility] ([place]) Comment: Interpretive Data Percent cell count reference ranges are not reported, since discordance with absolute values may lead to misinterpretation of CBC data. Current Interpretive Data was last revised on 2017. Lymphocyte pct 44.4 % [facility] ([place]) Comment: Interpretive Data Percent cell count reference ranges are not reported, since discordance with absolute values may lead to misinterpretation of CBC data. Current Interpretive Data was last revised on 2017. Monocyte pct 8.7 % [facility] ([place]) Comment: Interpretive Data Percent cell count reference ranges are not reported, since discordance with absolute values may lead to misinterpretation of CBC data. Current Interpretive Data was last revised on 2017. Eosinophil pct 1.4 % [facility] ([place]) Comment: Interpretive Data Percent cell count reference ranges are not reported, since discordance with absolute values may lead to misinterpretation of CBC data. Current Interpretive Data was last revised on 2017. Basophil pct 1.4 % [facility] ([place]) Comment: Interpretive Data Percent cell count reference ranges are not reported, since discordance with absolute values may lead to misinterpretation of CBC data. Current Interpretive Data was last revised on 2017. Blood 12/18/2024 2:29 AM CDT 12/18/2024 3:02 AM CDT us Osman Arriaga MD LAB BLOOD ORDERABLES Final Resu lt [facility] ([place]) [facility] Department [place] [address] * (ABNORMAL) CBC with auto differential (12/18/2024 2:29 AM CDT) WBC 3.56(L) 3.80 - 9.90 K/cumm Hgb 13.3 13.0 - 17.5 g/dL [facility] ([place]) Hct 39.6 38.9 - 50.3 % [facility] ([place]) Plt 231 150 - 400 K/cumm [facility] ([place]) MPV 10.4 9.1 - 12.3 fL [facility] ([place]) RBC 4.51 4.30 - 5.80 M/cumm [facility] ([place]) MCV 87.8 81.3 - 96.4 fL [facility] ([place]) MCH 29.5 27.1 - 33.3 pg [facility] ([place]) MCHC 33.6 32.3 - 35.7 g/dL [facility] ([place]) RDW CV 13.5 11.1 - 14.9 % [facility] ([place]) RDW SD 43.4 35.7 - 48.1 fL [facility] ([place]) NRBC abs 0.00 0.00 - 0.01 K/cumm [facility] ([place]) Blood 12/18/2024 2:29 AM CDT 12/18/2024 3:02 AM CDT us Osman Arriaga MD LAB BLOOD ORDERABLES Final Resu lt [facility] ([place]) [facility] Department [place] [address] * (ABNORMAL) Comprehensive metabolic panel (12/18/2024 2:29 AM CDT) Sodium 138 135 - 145 mmol/L [facility] ([place]) Potassium, pl 3.7 3.3 - 4.9 mmol/L [facility] ([place]) Chloride 106 97 - 110 mmol/L [facility] ([place]) CO2 21(L) 22 - 32 mmol/L [facility] ([place] Anion gap 11 2 - 15 mmol/L [facility] ([place] BUN 10 6 - 25 mg/dL [facility] ([place] Creatinine 1.14 0.80 - 1.30 mg/dL [facility] ([place]) Glucose 87 70 - 199 mg/dL [facility] ([place] Comment: Interpretive Data Fasting glucose >/= 126 mg/dl is diagnostic for diabetes. Fasting is defined as no caloric intake for at least 8 hours. Fasting glucose between 100 mg/dl to 125 mg/dl is diagnostic of prediabetes. In a patient with classic symptoms of hyperglycemia or hyperglycemic crisis, a random glucose >/= 200 mg/dl is diagnostic for diabetes. In the absence of unequivocal hyperglycemia, results should be confirmed by repeat testing. The classification and Diagnosis of Diabetes Diabetes Care 202; 46: S19-S40. Current interpretive data was last revised 2022. Calcium 8.8 8.5 - 10.3 mg/dL [facility] ([place]) Bilirubin, total 0.6 0.1 - 1.2 mg/dL [facility] ([place]) Protein, pl 6.0(L) 6.5 - 8.5 g/dL [facility] ([place]) Albumin 3.6 3.5 - 5.0 g/dL [facility] ([place]) Alk phos 52 40 - 130 Units/L [facility] ([place]) ALT 6(L) 7 - 55 Units/L [facility] ([place]) AST 13 10 - 50 Units/L [facility] ([place]) Blood 12/18/2024 2:29 AM CDT 12/18/2024 3:02 AM CDT us Osman Arriaga MD LAB BLOOD ORDERABLES Final Resu lt [facility] ([place]) [facility] [place] [address] * [place] CRIT[place] C[place] ILL/INJURED PATIENT INIT 30-74 MIN (12/17/2024 6:54 PM CDT) Narrative Oli Roger MD - 12/17/2024 6:54 PM CDT Oli Roger MD 12/17/2024 6:54 PM Critical Care Performed by: Oli Roger MD Authorized by: Oli Roger MD Critical care provider statement: As reflected in the history, physical exam, orders, notes, and/or MDM, I was personally present while the patient was critically ill and provided critical care services for 30 minutes, excluding time involved in separately billable procedures. Critical care was necessary to treat or prevent imminent or life-threatening deterioration of the following condition(s): seizure hypertensive crisis Critical care was time spent by me providing the following: initiation of anti-epileptic therapy initiation and active titration of vasoactive medications I spent time discussing the management of this critically ill patient with consultants and the medical staff. I ordered and reviewed test results and/or imaging studies. I provided emergent necessary critical care medicine services to this patient. Oli Roger MD IN CLINIC/BEDSIDE ORDERABLES Final Result * Troponin T high-sensitivity 4-hour (12/17/2024 4:29 PM CDT) Trop T hs <6 <=22 ng/L Comment: Interpretive Data For further hscTnT resources including the diagnostic algorithm and an aid in interpretation, copy and paste this link: [email or web address]/show/hsTrop Current Interpretive Data last revised 2020. Trop T hs delta 0 ng/L [facility] ([place]) Trop T hs interp Insignificant [facility] ([place]) Blood 12/17/2024 4:29 PM CDT 12/17/2024 4:35 PM CDT Claudia Kelly MD LAB BLOOD ORDERABLES Lynn l Result Performing Organization Address [facility]/State/ZIP Co de Phone Number [facility] ([place]) [facility] [place] [address] * Troponin T high-sensitivity 2-hour (12/17/2024 2:50 PM CDT) Trop T hs <6 <=22 ng/L [facility] ([place]) Comment: Interpretive Data For further hscTnT resources including the diagnostic algorithm and an aid in interpretation, copy and paste this link: [email or web address]/show/[email or web address] Current Interpretive Data last revised 2020. Trop T hs delta 0 ng/L [facility] ([place]) Trop T hs interp Insignificant [facility] ([place]) Blood 12/17/2024 2:50 PM CDT 12/17/2024 2:53 PM CDT Claudia Kelly MD LAB BLOOD ORDERABLES Lynn l Result [facility] [place] [place] [address] * CT Head WO Contrast (12/17/2024 1:23 PM CDT) Anatomical Region Laterality Modality Head and Neck N/A Computed Tomogra phy 12/17/2024 1:53 PM CDT Narrative 12/17/2024 2:04 PM CDT EXAM DESCRIPTION: CT HEAD WO CONTRAST REASON FOR STUDY: seizure, hypertension, ms changes Altered mental status, history of seizures, patient poor historian TECHNIQUE: Axial images acquired through the brain without intravenous contrast. Images stored on PACS. Automated exposure control was used as a dose optimization technique for this examination. COMPARISON: May 12, 2024 FINDINGS: BRAIN: No hemorrhage, edema or mass effect. No recent infarct. Mild low-attenuation change in white matter of both cerebral hemispheres. Unchanged asymmetric enlargement of the left ambient cistern is unchanged. This could be developmental or due to an arachnoid cyst. There is no significant mass effect. Slightly low-lying cerebellar tonsils project just into the foramen magnum. EXTRA-AXIAL SPACES: No fluid collections. No masses. CALVARIUM: No fracture. SINUSES/MASTOIDS: No fluid or mucosal thickening. ORBITS: No significant abnormality. OTHER: No other significant abnormality. IMPRESSION: 1. No acute intracranial abnormality. 2. Mild low-attenuation change in white matter of both cerebral hemispheres. 3. Unchanged asymmetric enlargement of left ambient cistern could be developmental or due to an arachnoid cyst. 4. Slightly low-lying cerebellar tonsils project just into the foramen magnum. THIS IS AN ELECTRONICALLY VERIFIED FINAL REPORT 12/17/2024 2:04 PM - Electronically signed by Saqib Green M.D. RB: [place] Report ID: [id number] Reading Location: [id number] Procedure Note Saqib Green MD - 12/17/2024 EXAM DESCRIPTION: CT HEAD WO CONTRAST REASON FOR STUDY: seizure, hypertension, ms changes Altered mental status, history of seizures, patient poor historian TECHNIQUE: Axial images acquired through the brain without intravenous contrast. Images stored on PACS. Automated exposure control was used asa dose optimization technique for this examination. COMPARISON: May 12, 2024 FINDINGS: BRAIN: No hemorrhage, edema or mass effect. No recent infarct. Mild low-attenuation change in white matter of both cerebral hemispheres. Unchanged asymmetric enlargement of the left ambient cistern is unchanged. This could be developmental or due to an arachnoid cyst. There is no significant mass effect. Slightly low-lying cerebellar tonsils projectjust into the foramen magnum. EXTRA-AXIAL SPACES: No fluid collections. No masses. CALVARIUM: No fracture. SINUSES/MASTOIDS: No fluid or mucosal thickening. ORBITS: No significant abnormality. OTHER: No other significant abnormality. IMPRESSION: 1. No acute intracranial abnormality. 2. Mild low-attenuation change in white matter of both cerebralhemispheres. 3. Unchanged asymmetric enlargement of left ambient cistern could be developmental or due to an arachnoid cyst. 4. Slightly low-lying cerebellar tonsils project just into the foramen magnum. THIS IS AN ELECTRONICALLY VERIFIED FINAL REPORT 12/17/2024 2:04 PM - Electronically signed by Saqib Green M.D. RB: [place] Report ID: [id number] Reading Location: [id number] Claudia Kelly MD IMG CT PROCEDURES Final R esult * XR Chest 1 Vw Portable (12/17/2024 1:04 PM CDT) Anatomical Region Laterality Modality Body, Chest N/A Computed Radiogr aphy 12/17/2024 1:33 PM CDT Narrative 12/17/2024 1:53 PM CDT EXAM DESCRIPTION: XR CHEST 1 VIEW REASON FOR STUDY: Decreased responsiveness seizure Patient BIBEMS for complaints of seizures. Per EMS patient has alcohol induced seizures and has not taken medications for several days. Unknown last use of ETOH. Patient has several reported seizures for family and for EMS patient has reported 4 min focal seizure with small amounts of twitching,. Upon arrival patient was post ictal and then started having another focal seizure lasting 1-2 min. ER MD at bedside. After valium admin patient was alert to verbal however remained postictal. TECHNIQUE: Portable upright AP radiographic view(s) of the chest. COMPARISON: October 26, 2024 FINDINGS: LUNGS: Minimal bibasilar subsegmental atelectasis. Unchanged minimal scarring in left mid/upper lung field. Small nodular density in right upper lung field was present previously and has probably not changed; however, CT could be used for additional evaluation. Otherwise, no acute focal opacity, pleural effusion, or pneumothorax. HEART/MEDIASTINUM: Cardiac silhouette normal in size. Mediastinal and hilar contours appear normal. LINES/TUBES: None. BONES: No acute osseous abnormality. IMPRESSION: 1. Minimal bibasilar subsegmental atelectasis. 2. Unchanged minimal scarring in left mid/upper lung field. 3. Small nodular density in right upper lung field was present previously and has probably not changed; however, CT could be used for additional evaluation. THIS IS AN ELECTRONICALLY VERIFIED FINAL REPORT 12/17/2024 1:53 PM - Electronically signed by Saqib Green M.D. RB: [place] Report ID: [id number] Reading Location: [id number] Procedure Note Saqib Green MD - 12/17/2024 EXAM DESCRIPTION: XR CHEST 1 VIEW REASON FOR STUDY: Decreased responsiveness seizure Patient BIBEMS for complaints of seizures. 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 Unknown last useof ETOH. Patient has several reported seizures for family and for EMS patienthas reported 4 min focal seizure with small amounts of twitching,. Uponarrival patient was post ictal and then started having another focal seizurelasting 1-2 min. ER MD at bedside. After valium admin patient was alert to verbal however remained postictal. TECHNIQUE: Portable upright AP radiographic view(s) of the chest. COMPARISON: October 26, 2024 FINDINGS: LUNGS: Minimal bibasilar subsegmental atelectasis. Unchanged minimal scarring in left mid/upper lung field. Small nodular density in rightupper lung field was present previously and has probably not changed; however,CT could be used for additional evaluation. Otherwise, no acute focalopacity, pleural effusion, or pneumothorax. HEART/MEDIASTINUM: Cardiac silhouette normal in size. Mediastinal andhilar contours appear normal. LINES/TUBES: None. BONES: No acute osseous abnormality. IMPRESSION: 1. Minimal bibasilar subsegmental atelectasis. 2. Unchanged minimal scarring in left mid/upper lung field. 3. Small nodular density in right upper lung field was presentpreviously and has probably not changed; however, CT could be used for additional evaluation. THIS IS AN ELECTRONICALLY VERIFIED FINAL REPORT 12/17/2024 1:53 PM - Electronically signed by Saqib Green M.D. RB: [place] Report ID: [id number] Reading Location: [place] [id number] Claudia Kelly MD IMG XR PROCEDURES Final R esult * ECG 12 lead (12/17/2024 12:56 PM CDT) 12/17/2024 12:5 6 PM CDT Narrative [facility] - 12/17/2024 4:02 PM CDT Vent Rate: 70 bpm RR Interval: 851 msec [place] Interval: 139 msec QRS Duration: 79 msec QT Interval: 413 msec QTC Interval: 434 msec P-R-T Desmet: 121 - -52 - 106 degrees IMPRESSION: SINUS RHYTHM POSSIBLE LEFT ATRIAL ENLARGEMENT [-0.1mV P-WAVE IN V1/V2] LEFT ANTERIOR FASCICULAR BLOCK [QRS AXIS <= -45, QR IN I, RS IN II] NONSPECIFIC T-WAVE ABNORMALITY ABNORMAL ECG Compared to prior EKG, heart rate has decreased Electronically Signed By: Jerson Downs MD Claudia Kelly MD ECG ORDERABLES Final Res ult [facility] * Troponin T high-sensitivity series (baseline, 2hr, 4hr, 6hr) (12/17/2024 12:41 PM CDT) Trop T hs <6 <=22 ng/L [facility] ([place]) Comment: Interpretive Data For further hscTnT resources including the diagnostic algorithm and an aid in interpretation, copy and paste this link: [email or web address].[employer]catalog.org/show/hsTrop Current Interpretive Data last revised 2020. Blood 12/17/2024 12:4 1 PM CDT 12/17/2024 12:48 PM CDT Claudia Kelly MD LAB BLOOD ORDERABLES Lynn l Result JEANIE CISNER[facility] ([place]) [address] [place] [address] [employer] [place] [address] * Sepsis Lactate w/ Reflex (12/17/2024 12:41 PM CDT) [facility] Sepsis Lactate 1.6 0.7 - 2.0 mmol/L Blood 12/17/2024 12:4 1 PM CDT 12/17/2024 12:47 PM CDT Claudia Kelly MD LAB BLOOD ORDERABLES Lynn l Result JEANIE CISNEROS ([place]) 1 [facility] [employer] [place] [address] * eGFR (12/17/2024 12:41 PM CDT) Pathologist [facility] eGFR 86 >=60 mL/min/1. 73 m2 Comment: Interpretive Data Reference Interval Normal >/= 90 mL/min/1.73m2 Mildly decreased* 60 - 89 mL/min/1.73m2 Mildly to moderately decreased 45 - 59 mL/min/1.73m2 Moderately to severely decreased 30 - 44 mL/min/1.73m2 Severely decreased 15 - 29 mL/min/1.73m2 Kidney Failure < 15 mL/min/1.73m2 *Relative to young adult level Estimated glomerular filtration rate is determined by the 2020 CKD-EPI equation recommended by the National Kidney Foundation (A Unifying Approach to GFR Estimation: Recommendations of the NKF-ASK Task Force on Reassessing the Inclusion of Race in Diagnosing Kidney Disease, JASN 2020). The CKD-EPI equation should not be used for patients with unstable renal function and has not been validated in children and those over 70. Current interpretive data was last reviewed 2021. Blood 12/17/2024 12:4 1 PM CDT 12/17/2024 12:48 PM CDT us Claudia Kelly MD LAB BLOOD ORDERABLES Lynn l Result [facility] ([place]) 1 [facility] Department [place] [address] * Differential, auto (12/17/2024 12:41 PM CDT) Neutrophil abs 1.65 1.50 - 6.50 K/cumm Imm gran abs 0.01 0.00 - 0.10 K/cumm [facility] ([place]) Lymphocyte abs 1.25 0.80 - 3.30 K/cumm [facility] ([place]) Monocyte abs 0.25 0.20 - 0.80 K/cumm [facility] ([place]) Eosinophil abs 0.03 0.00 - 0.50 K/cumm [facility] ([place]) Basophil abs 0.03 0.00 - 0.10 K/cumm [facility] ([place]) Neutrophil pct 51.3 % [facility] ([place]) Comment: Interpretive Data Percent cell count reference ranges are not reported, since discordance with absolute values may lead to misinterpretation of CBC data. Current Interpretive Data was last revised on 2017. Imm gran pct 0.3 % [facility] ([place]) Comment: Interpretive Data Percent cell count reference ranges are not reported, since discordance with absolute values may lead to misinterpretation of CBC data. Current Interpretive Data was last revised on 2017. Lymphocyte pct 38.8 % [facility] ([place]) Comment: Interpretive Data Percent cell count reference ranges are not reported, since discordance with absolute values may lead to misinterpretation of CBC data. Current Interpretive Data was last revised on 2017. Monocyte pct 7.8 % [facility] ([place]) Comment: Interpretive Data Percent cell count reference ranges are not reported, since discordance with absolute values may lead to misinterpretation of CBC data. Current Interpretive Data was last revised on 2017. Eosinophil pct 0.9 % [facility] ([place]) Comment: Interpretive Data Percent cell count reference ranges are not reported, since discordance with absolute values may lead to misinterpretation of CBC data. Current Interpretive Data was last revised on 2017. Basophil pct 0.9 % [facility] ([place]) Comment: Interpretive Data Percent cell count reference ranges are not reported, since discordance with absolute values may lead to misinterpretation of CBC data. Current Interpretive Data was last revised on 2017. Blood 12/17/2024 12:4 1 PM CDT 12/17/2024 12:48 PM CDT Claudia Kelly MD LAB BLOOD ORDERABLES Lynn l Result [facility] ([place]) 1 [facility] Department of Laboratories [place], [place] [id number] * (ABNORMAL) CBC with auto differential (12/17/2024 12:41 PM CDT) WBC 3.22(L) 3.80 - 9.90 K/cumm Hgb 12.8(L) 13.0 - 17.5 g/dL [facility] ([place]) Hct 38.9 38.9 - 50.3 % [facility] ([place]) Plt 217 150 - 400 K/cumm [facility] ([place]) MPV 9.9 9.1 - 12.3 fL [facility] ([place]) RBC 4.40 4.30 - 5.80 M/cumm [facility] ([place]) MCV 88.4 81.3 - 96.4 fL [facility] ([place]) MCH 29.1 27.1 - 33.3 pg [facility] ([place]) MCHC 32.9 32.3 - 35.7 g/dL [facility] ([place]) RDW CV 13.6 11.1 - 14.9 % [facility] ([place]) RDW SD 44.2 35.7 - 48.1 fL [facility] ([place]) NRBC abs 0.00 0.00 - 0.01 K/cumm [facility] ([place]) Blood 12/17/2024 12:4 1 PM CDT 12/17/2024 12:48 PM CDT Claudia Kelly MD LAB BLOOD ORDERABLES Lynn l Result Performing Organization Address [facility] Co de Phone Number JEANIE CISNEROS ([place]) [address] [facility] [employer] [place] [address] * (ABNORMAL) Levetiracetam level (12/17/2024 12:41 PM CDT) Levetiracetam (Keppra) <1.0(L) 10.0 - 40.0 mcg/mL [facility] Comment: ADDITIONAL INFORMATION This test was developed and its performance characteristics determined by [facility] in a manner consistent with CLIA requirements. This test has not been cleared or approved by the U.S. Food and Drug Administration. Test Performed by: [facility] [place] [address] Outpatient Psychiatrist: Sandeep Navarrete Ph.D.; CLIA# [id number] Blood 12/17/2024 12:4 1 PM CDT 12/17/2024 2:33 PM CDT Claudia Kelly MD LAB BLOOD ORDERABLES Lynn l Result Performing Organization Address [facility]/ZIP Co de Phone Number [facility]ANIE C[facility] ([place]) 1 [facility] [email or web address] [address] [facility] * Ethanol (12/17/2024 12:41 PM CDT) Ethanol <10 <=10 mg/dL [facility] ([place]) Comment: Interpretive Data Legal limit of intoxication > or = 80 mg/dL Levels > or = 400 mg/dL are potentially TOXIC. Current interpretive data was last revised on 2018. Blood 12/17/2024 12:4 1 PM CDT 12/17/2024 12:48 PM CDT Claudia Kelly MD LAB BLOOD ORDERABLES Lynn patton Result [facility] ([place]) 1 [facility] Department [place] [address] * Comprehensive metabolic panel (12/17/2024 12:41 PM CDT) Sodium 138 135 - 145 mmol/L [facility] ([place]) Potassium, pl 3.8 3.3 - 4.9 mmol/L [facility] ([place]) Chloride 102 97 - 110 mmol/L [facility] ([place]) CO2 22 22 - 32 mmol/L [facility] ([place]) Anion gap 14 2 - 15 mmol/L [facility] ([place]) BUN 13 6 - 25 mg/dL [facility] ([place]) Creatinine 1.02 0.80 - 1.30 mg/dL [facility] ([place]) Glucose 117 70 - 199 mg/dL [facility] ([place]) Comment: Interpretive Data Fasting glucose >/= 126 mg/dl is diagnostic for diabetes. Fasting is defined as no caloric intake for at least 8 hours. Fasting glucose between 100 mg/dl to 125 mg/dl is diagnostic of prediabetes. In a patient with classic symptoms of hyperglycemia or hyperglycemic crisis, a random glucose >/= 200 mg/dl is diagnostic for diabetes. In the absence of unequivocal hyperglycemia, results should be confirmed by repeat testing. The classification and Diagnosis of Diabetes Diabetes Care 2021; 46: S19-S40. Current interpretive data was last revised 2022. Calcium 8.6 8.5 - 10.3 mg/dL [facility] ([place]) Bilirubin, total 0.4 0.1 - 1.2 mg/dL [facility] ([place]) Protein, pl 6.7 6.5 - 8.5 g/dL [facility] ([place]) Albumin 4.0 3.5 - 5.0 g/dL [facility] ([place]) Alk phos 56 40 - 130 Units/L [facility] ([place]) ALT 9 7 - 55 Units/L [facility] ([place]) AST 16 10 - 50 Units/L [facility] ([place]) Blood 12/17/2024 12:4 1 PM CDT 12/17/2024 12:48 PM CDT Claudia Kelly MD LAB BLOOD ORDERABLES Lynn patton Result JEANIE CISNEROS ([place]) 1 [facility] Department [place] [address] * EEG (10/27/2024 9:35 AM CDT) Anatomical Region Laterality Modality Other Impressions 10/27/2024 9:35 AM CDT History: This is a 59 years old patient being evaluated for seizure disorder. The condition of the patient during the tracing was reported to be awake and drowsy. The quality of study is good. The background activity consisted of 5-6 hertz theta activity of moderate amplitude. There was no epileptiform discharges seen in this tracing. EKG showed regular rate and rhythm. Impressions: This is an abnormal EEG because of slightly diffuse slowing. The finding is suggestive of mild encephalopathy which could be secondary to metabolic, hypoxic or toxic insult and sedative side effect of medications. There was no epileptiform discharge seen in this tracing. The clinical correlation is recommended. us Sidney Cardenas NP NEUROLOGY ORDERABLES Edited Result - Final * Troponin T high-sensitivity 6-hour (10/27/2024 4:31 AM CDT) Trop T hs 11 <=22 ng/L Comment: Interpretive Data For further hscTnT resources including the diagnostic algorithm and an aid in interpretation, copy and paste this link: https://nrl.testcatalog.org/show/hsTrop Current Interpretive Data last revised 2020. Trop T hs delta See Comment ng/L CE RNJOSE AMELIA ([place]) Comment:Inappropriate collec tion time to report a delta. Trop T hs pct delta See Comment % CERBALDOMERO [facility] ([place]) Comment:Inappropriate collec tion time to report a delta. Trop T hs interp See Comment C CHEY CISNEROS ([place]) Comment:Inappropriate collec tion time to report a delta. Blood 10/27/2024 4:31 AM CDT 10/27/2024 4:44 AM CDT Elyssa HERRERA LAB BLOOD ORDERABLES Lynn l Result JEANIE CISNEROS ([place]) 1 [facility] Department of [employer] [place] [address] * Lactate (10/27/2024 4:31 AM CDT) Lactate 1.1 0.7 - 2.0 mmol/L Blood 10/27/2024 4:31 AM CDT 10/27/2024 4:44 AM CDT Bnoifacio Inman MD LAB BLOOD ORDERABLES Fi nal Result JEANIE CISNEROS ([place]) [address] [place] [address] Department of [employer] [place] [address] * eGFR (10/27/2024 4:31 AM CDT) eGFR 74 >=60 mL/min/1. 73 m2 Comment: Interpretive Data Reference Interval Normal >/= 90 mL/min/1.73m2 Mildly decreased* 60 - 89 mL/min/1.73m2 Mildly to moderately decreased 45 - 59 mL/min/1.73m2 Moderately to severely decreased 30 - 44 mL/min/1.73m2 Severely decreased 15 - 29 mL/min/1.73m2 Kidney Failure < 15 mL/min/1.73m2 *Relative to young adult level Estimated glomerular filtration rate is determined by the 2020 CKD-EPI equation recommended by the National Kidney Foundation (A Unifying Approach to GFR Estimation: Recommendations of the NKF-ASK Task Force on Reassessing the Inclusion of Race in Diagnosing Kidney Disease, JASN 2020). The CKD-EPI equation should not be used for patients with unstable renal function and has not been validated in children and those over 70. Current interpretive data was last reviewed 2021. Blood 10/27/2024 4:31 AM CDT 10/27/2024 4:44 AM CDT us Elyssa HERRERA LAB BLOOD ORDERABLES Lynn l Result [facility] ([place]) 1 [facility] Department [place] [address] * Differential, auto (10/27/2024 4:31 AM CDT) Neutrophil abs 4.63 1.50 - 6.50 K/cumm Imm gran abs 0.01 0.00 - 0.10 K/cumm [facility] ([place]) Lymphocyte abs 0.85 0.80 - 3.30 K/cumm [facility] ([place]) Monocyte abs 0.31 0.20 - 0.80 K/cumm [facility] ([place]) Eosinophil abs 0.01 0.00 - 0.50 K/cumm [facility] ([place]) Basophil abs 0.02 0.00 - 0.10 K/cumm [facility] ([place]) Neutrophil pct 79.4 % [facility] ([place]) Comment: Interpretive Data Percent cell count reference ranges are not reported, since discordance with absolute values may lead to misinterpretation of CBC data. Current Interpretive Data was last revised on 2017. Imm gran pct 0.2 % [facility] ([place]) Comment: Interpretive Data Percent cell count reference ranges are not reported, since discordance with absolute values may lead to misinterpretation of CBC data. Current Interpretive Data was last revised on 2017. Lymphocyte pct 14.6 % [facility] ([place]) Comment: Interpretive Data Percent cell count reference ranges are not reported, since discordance with absolute values may lead to misinterpretation of CBC data. Current Interpretive Data was last revised on 2017. Monocyte pct 5.3 % [facility] ([place]) Comment: Interpretive Data Percent cell count reference ranges are not reported, since discordance with absolute values may lead to misinterpretation of CBC data. Current Interpretive Data was last revised on 2017. Eosinophil pct 0.2 % [facility] ([place]) Comment: Interpretive Data Percent cell count reference ranges are not reported, since discordance with absolute values may lead to misinterpretation of CBC data. Current Interpretive Data was last revised on 2017. Basophil pct 0.3 % [facility] ([place]) Comment: Interpretive Data Percent cell count reference ranges are not reported, since discordance with absolute values may lead to misinterpretation of CBC data. Current Interpretive Data was last revised on 2017. Blood 10/27/2024 4:31 AM CDT 10/27/2024 4:44 AM CDT Elyssa HERRERA LAB BLOOD ORDERABLES Lynn patton Result [facility] ([place]) 1 [facility] Department of Laboratories [place] [id number] * (ABNORMAL) CBC with auto differential (10/27/2024 4:31 AM CDT) WBC 5.83 3.80 - 9.90 K/cumm Hgb 12.5(L) 13.0 - 17.5 g/dL [facility] ([place]) Hct 37.6(L) 38.9 - 50.3 % [facility] ([place]) Plt 188 150 - 400 K/cumm [facility] ([place]) MPV 9.2 9.1 - 12.3 fL [facility] ([place]) RBC 4.18(L) 4.30 - 5.80 M/cumm [facility] ([place]) MCV 90.0 81.3 - 96.4 fL [facility] ([place]) Comment:This result has been called to Chan Pfeiffer-IMMIGRATION SPECIALIST by [id number] on 10/27/2024 06:45:22. Patient was dehydrated when he came in and has been receiving fluids per RN. MCH 29.9 27.1 - 33.3 pg [facility] MCHC 33.2 32.3 - 35.7 g/dL [facility] RDW CV 15.3(H) 11.1 - 14.9 % [facility] RDW SD 51.0(H) 35.7 - 48.1 fL [facility] ([place]) NRBC abs 0.00 0.00 - 0.01 K/cumm [facility] ([place]) Blood 10/27/2024 4:31 AM CDT 10/27/2024 4:44 AM CDT us Elyssa HERRERA LAB BLOOD ORDERABLES Lynn l Result [facility] ([place]) 1 [facility] [place] [address] * (ABNORMAL) Comprehensive metabolic panel (10/27/2024 4:31 AM CDT) Sodium 138 135 - 145 mmol/L Potassium, pl 3.8 3.3 - 4.9 mmol/L [facility] Chloride 101 97 - 110 mmol/L [facility] ([place] CO2 18(L) 22 - 32 mmol/L [facility] Anion gap 19(H) 2 - 15 mmol/L [facility] ([place]) BUN 10 6 - 25 mg/dL [facility] ([place] Creatinine 1.15 0.80 - 1.30 mg/dL [facility] Glucose 106 70 - 199 mg/dL [facility] ([place] Comment: Interpretive Data Fasting glucose >/= 126 mg/dl is diagnostic for diabetes. Fasting is defined as no caloric intake for at least 8 hours. Fasting glucose between 100 mg/dl to 125 mg/dl is diagnostic of prediabetes. In a patient with classic symptoms of hyperglycemia or hyperglycemic crisis, a random glucose >/= 200 mg/dl is diagnostic for diabetes. In the absence of unequivocal hyperglycemia, results should be confirmed by repeat testing. The classification and Diagnosis of Diabetes Diabetes Care 202; 46: S19-S40. Current interpretive data was last revised 2022. Calcium 8.0(L) 8.5 - 10.3 mg/dL [facility] ([place]) Bilirubin, total 0.9 0.1 - 1.2 mg/dL [facility] ([place]) Protein, pl 6.6 6.5 - 8.5 g/dL [facility] ([place]) Albumin 3.8 3.5 - 5.0 g/dL [facility] ([place]) Alk phos 79 40 - 130 Units/L [facility] ([place]) ALT 22 7 - 55 Units/L [facility] ([place]) AST 52(H) 10 - 50 Units/L [facility] ([place]) Blood 10/27/2024 4:31 AM CDT 10/27/2024 4:44 AM CDT Elyssa [facility] LAB BLOOD ORDERABLES Lynn l Result Performing Organization Address [facility] Co de Phone Number JEANIE CISNEROS ([place]) 1 [facility] [place] [address] * Troponin T high-sensitivity 4-hour (10/27/2024 12:36 AM CDT) Trop T hs See Comment <=22 Comment: hemolyzed Interpretive Data For further hscTnT resources including the diagnostic algorithm and an aid in interpretation, copy and paste this link: https://nrl.testcatalog.org/show/hsTrop Current Interpretive Data last revised 2020. Trop T hs interp See Comment [facility] ([place]) Blood 10/27/2024 12:3 6 AM CDT 10/27/2024 12:40 AM CDT Elyssa HERRERA LAB BLOOD ORDERABLES Lynn l Result Performing Organization Address [facility]/ZIP Co de Phone Number JEANIE CISNEROS ([place]) 1 [facility] Department of [employer] [place] [address] * (ABNORMAL) Urinalysis reflex to microscopic and culture Urine (10/27/2024 12:13 AM CDT) Color, ur Straw Yellow Clarity, ur Clear Clear [facility] ([place]) Specific gravity, ur 1.011 1.003 - 1.030 [facility] ([place]) pH, urine 6.5 [facility] ([place]) Comment: Interpretive Data U rine pH is affected by diet, medications, systemic acid-base disturbances, and renal tubular function. pH may affect urinary stone formation. For example, urine pH below 6.0 may help reduce the tendency for calcium phosphate stones and pH greater than 6.0 may reduce the tendency for uric acid stone formation. Source: [facility] [employer] [employer] Current Interpretive Data was last revised on 2017 Protein, ur ql Negative Negative [facility] ([place]) Glucose, ur ql Negative Negative [facility] ([place]) Ketones, ur 1+(A) Negative [facility] ([place]) Bilirubin, ur Negative Negative [facility] ([place]) Blood, ur 2+(A) Negative [facility] ([place]) Urobilinogen, ur <2.0 <2.0 mg/dL [facility] ([place]) Nitrite, ur Negative Negative [facility] ([place]) Leukocyte esterase, ur Negative Negative [facility] ([place]) UA reflex comment Reflex to microscopic UA will be performed. [facility] ([place]) Urine 10/27/2024 12:1 3 AM CDT 10/27/2024 12:19 AM CDT Elyssa HERRERA LAB MICROBIOLOGY - GENERA L ORDERABLES Final Result [facility] ([place]) 1 [facility] Department of Laboratories [place], [place] [id number] * (ABNORMAL) Drugs of Abuse Screen, Urine without Confirmation (10/27/2024 12:13 AM CDT) Amphetamine, ur Not Detected CutOff 500ng/mL Comment: Interpretive Data - Amphetamines: Samples containing greater than 500 ng/mL d-methamphetamine or other cross-reacting amphetamine compounds are reported as positive. Amphetamine immunoassays are subject to significant false positive rates due to cross-reactivity of non-amphetamine drugs. Confirmatory testing required for definitive results. Current Interpretive Data was last reviewed 2022. Barbiturates, ur Not Detected CutOff 200ng/mL [facility] ([place]) Comment: Interpretive Data - Barbiturates: Samples containing greater than 200 ng/mL secobarbital or other cross-reacting barbiturate compounds are reported as positive. False positive and false negative results are possible. Confirmatory testing required for definitive results. Current Interpretive Data was last reviewed 2022. Benzodiazepines, ur Not Detected CutOff 100ng/mL [facility] ([place]) Comment: Interpretive Data - Benzodiazepines: Samples containing greater than 100 ng/mL nordiazepam or other cross-reacting compounds are reported as positive. False positive and false negative results are possible. Confirmatory testing required for definitive results. Current Interpretive Data was last reviewed 2022. Cannabinoids, ur Screen Positive, presumptive (A) CutOff 50 ng/mL [facility] ([place]) Comment: Interpretive Data - Cannabinoids: Samples containing greater than 50 ng/mL delta-9 THC -COOH or other cross- reacting compounds are reported as positive. False positive and false negative results are possible. Confirmatory testing required for definitive results. Current Interpretive Data was last reviewed 2022. Cocaine, ur Not Detected CutOff 150ng/mL [facility] ([place]) Comment: Interpretive Data - Cocaine: Samples containing greater than 150 ng/mL benzoylecgonine or other cross- reacting compounds are reported as positive. False positive and false negative results are possible. Confirmatory testing required for definitive results. Current Interpretive Data was last reviewed 2022. Fentanyl, Ur Not Detected CutOff 5 ng/mL [facility] ([place]) Comment: Interpretive Data - Fentanyl: Samples containing greater than 5 ng/mL norfentanyl, fentanyl, or other cross-reacting fentanyl compounds are reported as positive. False positive and false negative results are possible. Confirmatory testing required for definitive results. Current Interpretive Data was last reviewed 2023. Methadone, ur Not Detected CutOff 300ng/mL [facility] ([place]) Comment: Interpretive Data - Methadone: Samples containing greater than 300 ng/mL d,l-methadone or other cross-reacting compounds are reported as positive. False positive and false negative results are possible. Confirmatory testing required for definitive results. Current Interpretive Data was last reviewed 2022. Opiates, ur Not Detected CutOff 300ng/mL JEANIE CISNEROS ([place]) Comment: Interpretive Data - Opiates: Samples containing greater than 300 ng/mL morphine or other cross-reacting compounds are reported as positive. False positive and false negative results are possible. Confirmatory testing required for definitive results. Current Interpretive Data was last reviewed 2022. Oxycodone, ur Not Detected CutOff 100ng/mL JEANIE CISNEROS ([place]) Comment: Interpretive Data - Oxycodone: Samples containing greater than 100 ng/mL oxycodone or other cross-reacting compounds are reported as positive. False positive and false negative results are possible. Confirmatory testing required for definitive results. Current Interpretive Data was last reviewed 2022. Phencyclidine, ur Not Detected CutOff 25 ng/mL JEANIE CISNEROS ([place]) Comment: Interpretive Data - Phencyclidine: Samples containing greater than 25 ng/mL phencyclidine or other cross-reacting compounds are reported as positive. False positive and false negative results are possible. Confirmatory testing required for definitive results. Current Interpretive Data was last reviewed 2022. Urine Creatinine 60 mg/dL ELIZABETH CISNEROS ([place]) Comment: Interpretive Data Urine Creatinine: < 10 mg/dL is extremely dilute = or > 10 but < 20 mg/dL is dilute = or > 20 mg/dL is normal Current Interpretive Data was last revised on 2017. Urine 10/27/2024 12:1 3 AM CDT 10/27/2024 12:19 AM CDT Narrative JEANIE CISNEROS ([place]) - 10/27/2024 12:48 AM CDT Drug of Abuse screening is performed by immunoassay for medical purposes only. This is not to be used for Pain Management purposes. Elyssa HERRERA LAB URINE ORDERABLES Lynn patton Result JEANIE CISNEROS ([place]) 1 [facility] [place] [address] * (ABNORMAL) Urinalysis, microscopic only (10/27/2024 12:13 AM CDT) WBC, ur 0-5 0 - 5 /HPF RBC, ur 3-5(A) 0 - 2 /HPF [facility] ([place]) Mucous, ur Present(A) JEANIE Isbell ([place]) Culture Reflex Comment Reflex conditions for urine culture (WBC >10) not met. [facility] ([place]) Urine 10/27/2024 12:1 3 AM CDT 10/27/2024 12:19 AM CDT Elyssa HERRERA LAB URINE ORDERABLES Lynn l Result Performing Organization Address [facility]/ZIP Co de Phone Number [facility] ([place]) 1 [facility] [place] [address] * Troponin T high-sensitivity 2-hour (10/26/2024 11:12 PM CDT) Pathologist [facility] Trop T hs 9 <=22 ng/L Comment: Interpretive Data For further hscTnT resources including the diagnostic algorithm and an aid in interpretation, copy and paste this link: https://nrl.testcatalog.org/show/hsTrop Current Interpretive Data last revised 2020. Trop T hs delta -3 ng/L [facility] ([place]) Trop T hs interp Insignificant [facility] ([place]) Blood 10/26/2024 11:1 2 PM CDT 10/26/2024 11:16 PM CDT Elyssa HERRERA LAB BLOOD ORDERABLES Lynn l Result [facility] ([place]) [address] [facility] [address] [place] [address] * (ABNORMAL) Sepsis Lactate w/ Reflex (10/26/2024 11:12 PM CDT) Pathologist [facility] Sepsis Lactate 4.4(C) 0.7 - 2.0 mmol/L Comment:Critical result call ed to and read back by _lori archaby (icu) on 10/26/2024 23:20:10 CDT to ovidio medrano. Blood 10/26/2024 11:1 2 PM CDT 10/26/2024 11:16 PM CDT Elyssa HERRERA LAB BLOOD ORDERABLES Lynn l Result Performing Organization Address [facility]/ZIP Co de Phone Number JEANIE CISNEROS ([place]) 1 [facility] [place] [address] * Troponin T high-sensitivity series (baseline, 2hr, 4hr, 6hr) (10/26/2024 8:22 PM CDT) Trop T hs 12 <=22 ng/L Comment: Interpretive Data For further hscTnT resources including the diagnostic algorithm and an aid in interpretation, copy and paste this link: https://nrl.testcatalog.org/show/hsTrop Current Interpretive Data last revised 2020. Blood 10/26/2024 8:22 PM CDT 10/26/2024 8:24 PM CDT Elyssa HERRERA LAB BLOOD ORDERABLES Lynn l Result Performing Organization Address [facility] Co de Phone Number JEANIE CISNEROS ([place]) 1 [facility] [place] [address] * (ABNORMAL) Sepsis Lactate w/ Reflex (10/26/2024 8:22 PM CDT) Sepsis Lactate 8.5(C) 0.7 - 2.0 mmol/L Comment:Critical result call ed to and read back by Cesar Benz (ED) on 10/26/2024 20:27:55 CDT to [id number]. Blood 10/26/2024 8:22 PM CDT 10/26/2024 8:24 PM CDT us Elyssa HERRERA LAB BLOOD ORDERABLES Lynn l Result Performing Organization Address [facility]/ZIP Co de Phone Number [facility] [place]) [address] [facility] [address] [place] [address] * eGFR (10/26/2024 8:22 PM CDT) eGFR 65 >=60 mL/min/1. 73 m2 Comment: Interpretive Data Reference Interval Normal >/= 90 mL/min/1.73m2 Mildly decreased* 60 - 89 mL/min/1.73m2 Mildly to moderately decreased 45 - 59 mL/min/1.73m2 Moderately to severely decreased 30 - 44 mL/min/1.73m2 Severely decreased 15 - 29 mL/min/1.73m2 Kidney Failure < 15 mL/min/1.73m2 *Relative to young adult level Estimated glomerular filtration rate is determined by the 2020 CKD-EPI equation recommended by the National Kidney Foundation (A Unifying Approach to GFR Estimation: Recommendations of the NKF-ASK Task Force on Reassessing the Inclusion of Race in Diagnosing Kidney Disease, JASN 2020). The CKD-EPI equation should not be used for patients with unstable renal function and has not been validated in children and those over 70. Current interpretive data was last reviewed 2021. Blood 10/26/2024 8:22 PM CDT 10/26/2024 8:24 PM CDT us Elyssa HERRERA LAB BLOOD ORDERABLES Lynn l Result Performing Organization Address [facility]/ZIP Co de Phone Number [facility] ([place]) 1 [facility] [email or web address] [address] * Ethanol (10/26/2024 8:22 PM CDT) Ethanol <10 <=10 mg/dL Comment: Interpretive Data Legal limit of intoxication > or = 80 mg/dL Levels > or = 400 mg/dL are potentially TOXIC. Current interpretive data was last revised on 2018. Blood 10/26/2024 8:22 PM CDT 10/26/2024 8:24 PM CDT us Elyssa HERRERA LAB BLOOD ORDERABLES Lynn patton Result JEANIE CISNEROS ([place]) 1 [facility] [place] [address] * (ABNORMAL) Comprehensive metabolic panel (10/26/2024 8:22 PM CDT) Sodium 134(L) 135 - 145 mmol/L Potassium, pl 4.4 3.3 - 4.9 mmol/L [facility] ([place]) Chloride 97 97 - 110 mmol/L [facility] ([place]) CO2 16(L) 22 - 32 mmol/L [facility] ([place]) Anion gap 21(H) 2 - 15 mmol/L [facility] ([place]) BUN 13 6 - 25 mg/dL [facility] ([place]) Creatinine 1.29 0.80 - 1.30 mg/dL [facility] ([place]) Glucose 102 70 - 199 mg/dL [facility] ([place]) Comment: Interpretive Data Fasting glucose >/= 126 mg/dl is diagnostic for diabetes. Fasting is defined as no caloric intake for at least 8 hours. Fasting glucose between 100 mg/dl to 125 mg/dl is diagnostic of prediabetes. In a patient with classic symptoms of hyperglycemia or hyperglycemic crisis, a random glucose >/= 200 mg/dl is diagnostic for diabetes. In the absence of unequivocal hyperglycemia, results should be confirmed by repeat testing. The classification and Diagnosis of Diabetes Diabetes Care 2021; 46: S19-S40. Current interpretive data was last revised 2022. Calcium 8.5 8.5 - 10.3 mg/dL [facility] ([place]) Bilirubin, total 0.6 0.1 - 1.2 mg/dL [facility] ([place]) Protein, pl 6.7 6.5 - 8.5 g/dL [facility] ([place]) Albumin 3.9 3.5 - 5.0 g/dL [facility] ([place]) Alk phos 89 40 - 130 Units/L [facility] ([place]) ALT 25 7 - 55 Units/L [facility] ([place]) AST 53(H) 10 - 50 Units/L [facility] ([place]) Blood 10/26/2024 8:22 PM CDT 10/26/2024 8:24 PM CDT Elyssa HERRERA LAB BLOOD ORDERABLES Lynn l Result JEANIE CISNEROS ([place]) 1 [facility] [place] [address] * CT Head WO Contrast (10/26/2024 7:47 PM CDT) Anatomical Region Laterality Modality Head and Neck N/A Computed Tomogra phy 10/26/2024 8:27 PM CDT Narrative 10/26/2024 8:37 PM CDT EXAM DESCRIPTION: CT HEAD WO CONTRAST REASON FOR STUDY: Seizure, new-onset, no history of trauma, seizure Patient presents status post several witnessed seizures tonight, patient unable/willing to comply with instructions scanned in position of comfort for patient safety recons sent with appropriate orientation for evaluation. TECHNIQUE: Axial images acquired through the brain without intravenous contrast. Images stored on PACS. Automated exposure control was used as a dose optimization technique for this examination. COMPARISON: Head CT dated 05/12/2024 and MRI of the brain dated 06/11/2023. FINDINGS: BRAIN: No hemorrhage, edema or mass effect. No recent infarct. There are a few small patchy subcortical and periventricular white matter hypodensities compatible with chronic small vessel ischemic changes. Intracranial atherosclerosis is noted. EXTRA-AXIAL SPACES: Stable arachnoid cyst adjacent to the left mesial temporal lobe in the region of the ambient cistern. No fluid collections. No other masses. CALVARIUM: No fracture. SINUSES/MASTOIDS: No fluid or mucosal thickening. ORBITS: No significant abnormality. OTHER: No other significant abnormality. IMPRESSION: No acute intracranial findings. THIS IS AN ELECTRONICALLY VERIFIED FINAL REPORT 10/26/2024 8:37 PM - Electronically signed by Bernard Washington M.D. MF: LESLY Report ID: [id number] Reading Location: [id number] Procedure Note Felix Bernard Imtiaz, DO - 10/26/2024 EXAM DESCRIPTION: CT HEAD WO CONTRAST REASON FOR STUDY: Seizure, new-onset, no history of trauma, seizure Patient presents status post several witnessed seizures tonight, patient unable/willing to comply with instructions scanned in position of comfortfor patient safety recons sent with appropriate orientation for evaluation. TECHNIQUE: Axial images acquired through the brain without intravenous contrast. Images stored on PACS. Automated exposure control was used asa dose optimization technique for this examination. COMPARISON: Head CT dated 05/12/2024 and MRI of the brain dated06/11/2023. FINDINGS: BRAIN: No hemorrhage, edema or mass effect. No recent infarct. Thereare a few small patchy subcortical and periventricular white matterhypodensities compatible with chronic small vessel ischemic changes. Intracranial atherosclerosis is noted. EXTRA-AXIAL SPACES: Stable arachnoid cyst adjacent to the left mesial temporal lobe in the region of the ambient cistern. No fluid collections.No other masses. CALVARIUM: No fracture. SINUSES/MASTOIDS: No fluid or mucosal thickening. ORBITS: No significant abnormality. OTHER: No other significant abnormality. IMPRESSION: No acute intracranial findings. THIS IS AN ELECTRONICALLY VERIFIED FINAL REPORT 10/26/2024 8:37 PM - Electronically signed by Bernard Washington M.D. MF: LESLY Report ID: [id number] Reading Location: [id number] Elyssa HERRERA IMG CT PROCEDURES Final R esult * XR Chest 1 Vw Portable (10/26/2024 7:15 PM CDT) Anatomical Region Laterality Modality Body, Chest N/A Computed Radiogr aphy 10/26/2024 7:38 PM CDT Narrative 10/26/2024 7:41 PM CDT EXAM DESCRIPTION: XR CHEST 1 VIEW REASON FOR STUDY: seizure Pt BIBEMS from home s/p seizures. Pt had witnessed seizure for family, had a 30 second seizure for EMS, and had a roughly minute and a half long seizure witnessed by ED staff. TECHNIQUE: Frontal radiographic view(s) of the chest. COMPARISON: Chest radiograph dated 05/11/2024. FINDINGS: LUNGS: No focal opacity, pleural effusion, or pneumothorax. HEART/MEDIASTINUM: Cardiac silhouette normal in size. Mediastinal and hilar contours appear normal. LINES/TUBES: None. BONES: No acute osseous abnormality. IMPRESSION: No acute cardiopulmonary abnormality. THIS IS AN ELECTRONICALLY VERIFIED FINAL REPORT 10/26/2024 7:41 PM - Electronically signed by Bernard Washington M.D. MF: LESLY Report ID: [id number] Reading Location: [id number] Procedure Note Bernard Washington, DO - 10/26/2024 EXAM DESCRIPTION: XR CHEST 1 VIEW REASON FOR STUDY: seizure Pt BIBEMS from home s/p seizures. Pt had witnessed seizure for family, hada 30 second seizure for EMS, and had a roughly minute and a half longseizure witnessed by ED staff. TECHNIQUE: Frontal radiographic view(s) of the chest. COMPARISON: Chest radiograph dated 05/11/2024. FINDINGS: LUNGS: No focal opacity, pleural effusion, or pneumothorax. HEART/MEDIASTINUM: Cardiac silhouette normal in size. Mediastinal andhilar contours appear normal. LINES/TUBES: None. BONES: No acute osseous abnormality. IMPRESSION: No acute cardiopulmonary abnormality. THIS IS AN ELECTRONICALLY VERIFIED FINAL REPORT 10/26/2024 7:41 PM - Electronically signed by Bernard Washington M.D. MF: LESLY Report ID: [id number] Reading Location: [id number] Elyssa HERRERA IMG XR PROCEDURES Final R esult * (ABNORMAL) Sepsis Lactate w/ Reflex (10/26/2024 7:09 PM CDT) Sepsis Lactate 23.0(C) 0.7 - 2.0 mmol/L Comment:Critical result call ed to and read back by Cesar Benz (ED) on 10/26/2024 19:23:49 CDT to [id number]. Blood 10/26/2024 7:09 PM CDT 10/26/2024 7:12 PM CDT us Elyssa HERRERA LAB BLOOD ORDERABLES Lynn pooja Result [facility] ([place]) 1 [facility] Department [place] [address] * Differential, auto (10/26/2024 7:09 PM CDT) Neutrophil abs 2.59 1.50 - 6.50 K/cumm Imm gran abs 0.01 0.00 - 0.10 K/cumm [facility] ([place]) Lymphocyte abs 2.18 0.80 - 3.30 K/cumm [facility] ([place]) Monocyte abs 0.51 0.20 - 0.80 K/cumm [facility] ([place]) Eosinophil abs 0.01 0.00 - 0.50 K/cumm [facility] ([place]) Basophil abs 0.04 0.00 - 0.10 K/cumm [facility] ([place]) Neutrophil pct 48.5 % [facility] ([place]) Comment: Interpretive Data Percent cell count reference ranges are not reported, since discordance with absolute values may lead to misinterpretation of CBC data. Current Interpretive Data was last revised on 2017. Imm gran pct 0.2 % [facility] ([place]) Comment: Interpretive Data Percent cell count reference ranges are not reported, since discordance with absolute values may lead to misinterpretation of CBC data. Current Interpretive Data was last revised on 2017. Lymphocyte pct 40.8 % [facility] ([place]) Comment: Interpretive Data Percent cell count reference ranges are not reported, since discordance with absolute values may lead to misinterpretation of CBC data. Current Interpretive Data was last revised on 2017. Monocyte pct 9.6 % [facility] ([place]) Comment: Interpretive Data Percent cell count reference ranges are not reported, since discordance with absolute values may lead to misinterpretation of CBC data. Current Interpretive Data was last revised on 2017. Eosinophil pct 0.2 % [facility] ([place]) Comment: Interpretive Data Percent cell count reference ranges are not reported, since discordance with absolute values may lead to misinterpretation of CBC data. Current Interpretive Data was last revised on 2017. Basophil pct 0.7 % [facility] ([place]) Comment: Interpretive Data Percent cell count reference ranges are not reported, since discordance with absolute values may lead to misinterpretation of CBC data. Current Interpretive Data was last revised on 2017. Blood 10/26/2024 7:09 PM CDT 10/26/2024 7:13 PM CDT us Elyssa HERRERA LAB BLOOD ORDERABLES Lynn patton Result [facility] ([place]) 1 [facility] Department [place] [address] * (ABNORMAL) CBC with auto differential (10/26/2024 7:09 PM CDT) WBC 5.34 3.80 - 9.90 K/cumm Hgb 13.2 13.0 - 17.5 g/dL [facility] ([place]) Hct 42.4 38.9 - 50.3 % [facility] ([place]) Plt 233 150 - 400 K/cumm [facility] ([place]) MPV 9.6 9.1 - 12.3 fL [facility] ([place]) RBC 4.45 4.30 - 5.80 M/cumm [facility] ([place]) MCV 95.3 81.3 - 96.4 fL [facility] ([place]) MCH 29.7 27.1 - 33.3 pg [facility] ([place]) MCHC 31.1(L) 32.3 - 35.7 g/dL [facility] ([place]) RDW CV 16.0(H) 11.1 - 14.9 % [facility] ([place]) RDW SD 57.3(H) 35.7 - 48.1 fL [facility] ([place]) NRBC abs 0.00 0.00 - 0.01 K/cumm [facility] ([place]) Blood 10/26/2024 7:09 PM CDT 10/26/2024 7:13 PM CDT Elyssa HERERRA LAB BLOOD ORDERABLES Lynn l Result Performing Organization Address City/[facility]/ZIP Co de Phone Number JEANIE CISNEROS ([place]) 1 [facility] [place] [address] * ECG 12 lead (10/26/2024 6:52 PM CDT) 10/26/2024 6:52 PM CDT Narrative [facility] - 10/27/2024 10:19 AM CDT Vent Rate: 116 bpm RR Interval: 513 msec [place] Interval: 130 msec QRS Duration: 83 msec QT Interval: 359 msec QTC Interval: 428 msec P-R-T Desmet: 67 - 24 - 69 degrees IMPRESSION: SINUS TACHYCARDIA POSSIBLE LEFT ATRIAL ENLARGEMENT [-0.1mV P WAVE IN V1/V2] No significant change from prior EKG. Electronically Signed By: Dr Cain Batista Elyssa HERRERA ECG ORDERABLES Final Res ult Performing Organization Address [facility] Co de Phone Number [facility] from Last 3 Months Insurance [facility] [id number] [place] [address] [facility] Advance Directives For more information, please contact: [phone] * Full Code (Latest Code Status on File) Date Activated Date Inactivated Comments 12/17/2024 2:42 PM 12/18/2024 6:40 PM * Full Code Date Activated Date Inactivated Comments 10/27/2024 9:14 AM 10/29/2024 9:13 PM * Full Code Date Activated Date Inactivated Comments 05/11/2024 8:53 PM 05/14/2024 4:50 PM * Full Code Date Activated Date Inactivated Comments 06/10/2023 5:50 PM 06/12/2023 8:21 PM * Full Code Date Activated Date Inactivated Comments 10/04/2022 4:22 PM 10/09/2022 5:05 PM 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
[2025-01-12] VITALS (9 sets, daily range): BP systolic 143–167; BP diastolic 87–93; PULSE 71–82; RESP 14–18; TEMP 37.1–37.2; O2SAT 100
[2025-01-12 06:48] LABS: Hematocrit 38.6 % (42.0-52.0); Hemoglobin 12.6 g/dL (14.0-18.0); Immature Granulocyte Percent A 0.4 % (0-0.5); Lymphocytes Absolute Auto 1.70 K/mm3 (0.9-3.2); Mean Corpuscular HGB Conc 32.6 g/dl (32-36); Mean Corpuscular Hemoglobin 28.6 pg (26-34); Mean Corpuscular Volume 87.7 fl (80-100); Nucleated Red Blood Cells Absolute Auto 0.000 K/mm3 (0.0-0.012); Nucleated Red Blood Cells Perc 0.0 % (0.0-0.2); Platelet Count Result 183 k/mm3 (150-375); Red Blood Count 4.40 M/mm3 (4.6-6.20); White Blood Count 7.5 K/mm3 (4.5-10.0)
[2025-01-12 07:24] LABS: Alanine Aminotransferase 12 U/L (6-50); Albumin Level 3.4 g/dL (3.5-5.1); Alkaline Phosphatase 63 U/L (38-126); Anion Gap 5 mmol/L (4-12); Aspartate Amino Transferase 28 U/L (17-59); Bilirubin,Total 1.3 mg/dL (0.2-1.3); Blood Urea Nitrogen 8 mg/dL (9-20); Calcium 8.5 mg/dL (8.4-10.2); Carbon Dioxide 21 mmol/L (22-30); Chloride 108 mmol/L (98-107); Estimated CRCL calculation 59 ml/min; Estimated Glomerular Filt Rate > 60; Glucose 102 mg/dL (65-110); Magnesium 2.0 mg/dL (1.6-2.3); Potassium 3.3 mmol/L (3.4-5.0); Sodium 134 mmol/L (137-145); Total Protein 6.4 g/dL (6.3-8.2)
[2025-01-12] MEDS: PANTOPRAZOLE SODIUM IV 40 MG VIAL IV PUSH (08:14)
[2025-01-12] MEDS: THIAMINE HCL 200 MG/2 ML VIAL 100 MG IV PUSH (08:14)
[2025-01-12] MEDS: MULTIVITAMINS THERAPEUTIC TAB (*BKC) 1 TABLET PO (08:14)
[2025-01-12] MEDS: FOLIC ACID 1 MG/0.2 ML INJ IV PUSH (09:55)
[2025-01-12] MEDS: POTASSIUM CHLORIDE 20 MEQ ER TABLET 40 MEQ PO (09:55)
--- NOTE | 2025-01-12 11:26 | WPDNEURCNPN ---
Assessment and Plan Assessment and plan (1) Seizure: Code(s): R56.9 - Unspecified convulsions Status: Acute Plan Recurrent seizures by history most likely related to drugs advise the patient according he is receiving Keppra 1000mg q.12 hours I showed him this is not a guarantee control the seizure if he keeps having the drugs involved but for the time being these medication can be continued as such. Consult date: 01/12/25 HPI: Teodora Francisco is a 59 year old male Admitted to the hospital through the emergency room with the complaints of change in mental status in addition to the confusion and history of hypertension. At the time of initial evaluation it was documented he is not allergic to any medication and initial exam in the emergency room was nonfocal, subsequently while in the ER he was noted to have a seizure when he received Keppra phenobarbital and Valium. His vital signs are with blood pressure of 209/99, routine CBC was normal, BMP was normal, and UA was positive for the cannabinoids. Alcohol level was less than 10. CPK was 465. head CT scan was negative for the bleed subsequently on the floor he was notedly confused and at present he is receiving levetiracetam 1000mg q.12 hours in addition to carvedilol 25mg q.12 hours, hydralazine 25mg Q 8hours, lisinopril 40mg daily. Review of Systems Review of Systems: All systems reviewed & are unremarkable except as noted in HPI and below PMFSH Past Medical History Medical History Hypertension Family History Family History Mother Father Mother Cancer Social History Social History Smoking status: Current every day smoker Tobacco type: e-cigarettes/vaping Second hand tobacco smoke exposure: No Alcohol intake: current Drinks per week: 12 Substance use: current Substance use type: marijuana Other substance usage details: denies use, positive on drug screen Lack of Transportation: No Lack of Food: Never True Current Housing: I Have Housing Concerned About Future Housing: No Difficulty Paying Gas/Electric Bills: No Difficulty Paying for Meds: No Currently Unemployed: No Education: High School Diploma/GED Difficulty w/ Childcare or Family Care: No Spiritual care concerns: No Meds Home Medications and Allergies Home Medications ?Medication ?Instructions ?Recorded ?Confirmed ?Type carvedilol 25 mg tablet 25 mg PO Q12H 01/11/25 01/11/25 History hydralazine 25 mg tablet 25 mg PO Q8H 01/11/25 01/11/25 History levetiracetam 1,000 mg tablet 1,000 mg PO Q12H 01/11/25 01/11/25 History lisinopril 40 mg tablet 40 mg PO DAILY 01/11/25 01/11/25 History Allergies Allergy/AdvReac Type Severity Reaction Status Date / Time No Known Allergies Allergy Verified 01/11/25 00:01 Vital Signs Vital Signs - 24 hr 01/11/25 11:57 01/11/25 12:00 01/11/25 12:00 Temperature 37.2 C Pulse Rate 76 91 Pulse Rate [Right Radial] 91 Respiratory Rate 24 H Blood Pressure 176/96 H Pulse Oximetry 100 01/11/25 14:00 01/11/25 15:04 01/11/25 16:00 Temperature 36.9 C Pulse Rate 90 84 82 Pulse Rate [Right Radial] Respiratory Rate 20 Blood Pressure 142/77 H Pulse Oximetry 100 01/11/25 16:00 01/11/25 16:00 01/11/25 20:00 Temperature Pulse Rate 86 82 Pulse Rate [Right Radial] 86 Respiratory Rate Blood Pressure Pulse Oximetry 01/11/25 20:00 01/11/25 20:29 01/11/25 21:20 Temperature 36.8 C Pulse Rate 73 81 Pulse Rate [Right Radial] 82 Respiratory Rate 18 Blood Pressure 165/95 H Pulse Oximetry 100 01/12/25 04:29 01/12/25 08:13 01/12/25 08:15 Temperature 37.2 C Pulse Rate 72 80 Pulse Rate [Right Radial] 82 Respiratory Rate 17 Blood Pressure 147/90 H 147/90 H Pulse Oximetry 100 Exam Narrative: Reveals him to be awake alert cooperative in no obvious acute distress, head normocephalic with no cranial bruit, ear nose throat examination normal, neck supple with no cervical bruit no thyromegaly no lymphadenopathy, heart regular with no murmur, lungs clear to auscultation with no rhonchi or crepitations, abdomen is soft nontender with no organomegaly, neurologically he is awake alert follow the instruction well and speech is not dysphasic not dysarthric not dysphonic, pupils round regular, vision full in all 4 quadrants, extraocular movements are full with no nystagmus, facial sensation intact, face symmetrical, tongue midline uvula midline, motor examination revealed him to have normal strength and tone with symmetrical reflexes downgoing plantar responses and no evidence of gross cerebellar deficit. Results Labs 01/12/25 06:12 01/12/25 06:12 Labs: Short CBC 01/12/25 Range/Units 06:12 WBC 7.5 (4.5-10.0) K/mm3 Hgb 12.6 L (14.0-18.0) g/dL Hct 38.6 L (42.0-52.0) % Plt Count 183 (150-375) k/mm3 BMP 01/12/25 06:12 Sodium 134 L Potassium 3.3 L Chloride 108 H Carbon Dioxide 21 L BUN 8 L Creatinine 1.03 Glucose 102 Calcium 8.5 Liver Function 01/12/25 Range/Units 06:12 Total Bilirubin 1.3 (0.2-1.3) mg/dL AST 28 (17-59) U/L ALT 12 (6-50) U/L Alkaline Phosphatase 63 (38-126) U/L Albumin 3.4 L (3.5-5.1) g/dL
--- NOTE | 2025-01-12 14:22 | P.PNIM_ITS ---
Progress Note: A&P Assessment and Plan (1) Seizure: Code(s): R56.9 - Unspecified convulsions Status: Acute (2) Altered mental status: Qualifiers: Altered mental status type: unspecified Qualified Code(s): R41.82 - Altered mental status, unspecified Code(s): R41.82 - Altered mental status, unspecified Status: Acute (3) Lactic acidosis: Code(s): E87.20 - Acidosis, unspecified Status: Acute (4) Elevated CPK: Code(s): R74.8 - Abnormal levels of other serum enzymes Status: Acute (5) Hypertension: Code(s): I10 - Essential (primary) hypertension Status: Acute Plan 59-year-old male with PMH hypertension, otherwise unknown [facility]. History provided by ER clinician. Document brought in from the residential reports patient arrested because probation violation. Reports seizure? Urinated on himself, leg twitching. While in the ER the patient was providing minimal history and when asked why he was brought in he reports chicken. At some point, ER staff suspected seizure as he appeared to be postictal after his telemetry demonstrated tachycardia in upon evaluation he was hypertensive, tachycardic, diaphoretic, drowsy and altered. Patient given Valium, phenobarbital, Keppra. Afterwards his lactic acid was 19. CT head without acute abnormalities. Blood pressure 224/95, improving to 154/91 after phenobarbital and Keppra. Sinus tachycardia also resolved. Afebrile. Saturating 97% on room air. Laboratory evaluation revealed WBC of 4.1, hemoglobin 13.8, INR 1.1, BUN 14, serum creatinine 1.12, magnesium not checked. CPK 465, glucose 145. Urinalysis trace glucose, 1+ ketones and protein. U tox positive for cannabinoids, serum alcohol level less than 10. ------ # Seizure - patient with hx of seizure disorder and does not follow with a doctor regularly. Neurology consulted. CT head negative. Loaded with Keppra 1000 mg IV x1 will continue 1000 mg Q12h. UDS positive for cannabinoids all o ther negative. Alcohol level less than 10. He does have history of alcohol use. He drank alcohol 3 days ago. Brain MRI showing a small enhancing lesion in the left frontal lobe with differential as cavernoma, telangiectasia or neoplasm. Still confused but improved overall. Will discuss MRI results with Neurosurgery. Continue with [facility] protocol. Seizure precautions/aspiration precautions. Check B12, folate, TSH, ammonia level. Consider LP but will discuss with neurology. # lactic acidosis - related to seizure # Elevated total CK - related to seizure # fever - low grade at 100.1. WBC normal. UA not consistent with UTI. CXR clear. Could be related to seizure. Follow. # hypertension - BP better. Elevated BP related to noncompliance with meds or from seizure? Continue home medication Code status full code DVT prophylaxis SCDs Subjective Date/time seen: 01/12/25 14:22 Interval history: 59-year-old male with hx of seizures brought in from [facility] for possible seizure. Assuming care. Chart reviewed. Patient is alert but still confused. Slept well. Lives in an apartment in [place] with his girlfriend. States he has been off seizure medicines for about a week. He is requesting discharge Review of Systems Review of Systems: ROS unobtainable: Yes unobtainable due to mental status Exam Narrative: AF 98.9 147/90 82 17 100% ra GENERAL: NARD HEENT: poor dentition CHEST: Clear to auscultation. HEART: Regular rate and rhythm ABDOMEN: Soft, nontender, nondistended, normal active bowel sounds. EXTREMITIES: No edema. SKIN: Warm, dry, no rash. NEURO: Alert and oriented x2. PSYCH: Normal mood and affect Objective Data Vital Signs Vital Signs: Vital Signs - 24 hr 01/11/25 15:04 01/11/25 16:00 01/11/25 16:00 Temperature 98.4 F Pulse Rate 84 82 Pulse Rate [Right Radial] 86 Respiratory Rate 20 Blood Pressure 142/77 H Pulse Oximetry 100 01/11/25 16:00 01/11/25 20:00 01/11/25 20:00 Temperature Pulse Rate 86 82 Pulse Rate [Right Radial] 82 Respiratory Rate Blood Pressure Pulse Oximetry 01/11/25 20:29 01/11/25 21:20 01/12/25 04:29 Temperature 98.2 F 98.9 F Pulse Rate 73 81 72 Pulse Rate [Right Radial] Respiratory Rate 18 17 Blood Pressure 165/95 H 147/90 H Pulse Oximetry 100 100 01/12/25 08:13 01/12/25 08:15 01/12/25 12:00 Temperature Pulse Rate 80 Pulse Rate [Right Radial] 82 82 Respiratory Rate Blood Pressure 147/90 H 147/90 H Pulse Oximetry Intake/Output Intake/Output: Intake & Output 01/09/25 01/10/25 01/11/25 01/12/25 23:59 23:59 23:59 23:59 Intake Total 2740 50 Output Total 300 Balance 2440 50 Meds/Results Medications: Active Medications Generic Name Dose Route Start Last Admin Trade Name Freq PRN Reason Stop Dose Admin Acetaminophen 650 mg 01/11/25 08:57 Acetaminophen 325 Mg Tablet PO Q4H PRN Headache/fever Carvedilol 25 mg 01/11/25 15:05 01/12/25 08:13 Carvedilol 25 Mg Tablet PO 25 mg Q12HR SABINE Administration Diazepam 5 mg 01/11/25 02:02 Diazepam Inj (*Crx) 10 Mg/2 Ml Syringe IV PUSH Q2H PRN CIWA > 15 Folic Acid 1 mg 01/11/25 02:00 01/12/25 09:55 Folic Acid 1 Mg/0.2 Ml Inj IV PUSH 1 mg QAM SABINE Administration Hydralazine HCl 25 mg 01/11/25 14:35 01/12/25 13:12 Hydralazine Hcl 25 Mg Tablet PO 25 mg Q8HR SABINE Administration Levetiracetam 1,000 mg 01/11/25 21:00 01/12/25 08:13 Levetiracetam 500 Mg Tablet PO 1,000 mg Q12HR SABINE Administration Lisinopril 40 mg 01/12/25 09:00 01/12/25 08:13 Lisinopril 20 Mg Tablet PO 40 mg DAILY SABINE Administration Multivitamins Therapeutic 1 tablet 01/11/25 09:00 01/12/25 08:14 Multivitamins Therapeutic Tab (*Bkc) PO 1 tablet QAM SABINE Administration Pantoprazole Sodium 40 mg 01/11/25 02:20 01/12/25 08:14 Pantoprazole Sodium Iv 40 Mg Vial IV PUSH 40 mg DAILY SABINE Administration Thiamine HCl 100 mg 01/12/25 09:00 01/12/25 08:14 Thiamine Hcl 200 Mg/2 Ml Vial IV PUSH 100 mg QAM SABINE Administration Radiology Results: ITS Impressions Head CT 01/11/25 08:23 IMPRESSION: 1. No acute intracranial pathology. Chest X-Ray 01/11/25 09:30 Impression: No acute cardiopulmonary abnormality. Labs Labs: Laboratory Results - last 24 hr 01/11/25 01/11/25 01/12/25 02:51 16:41 06:12 WBC 7.5 RBC 4.40 L Hgb 12.6 L Hct 38.6 L MCV 87.7 MCH 28.6 MCHC 32.6 RDW 13.1 Plt Count 183 MPV 10.9 H Immature Gran % (Auto) 0.4 Neut % (Auto) 68.6 Lymph % (Auto) 22.8 Mobile % (Auto) 7.1 Eos % (Auto) 0.7 Baso % (Auto) 0.4 Lymph # (Auto) 1.70 Mobile # (Auto) 0.5 Eos # (Auto) 0.1 Baso # (Auto) 0.0 Abs Immat Gran (auto) 0.03 Absolute Neuts (auto) 5.1 Absolute Nucleated RBC 0.000 Nucleated RBC % 0.0 Sodium 134 L Potassium 3.3 L Chloride 108 H Carbon Dioxide 21 L Anion Gap 5 BUN 8 L Creatinine 1.03 Estim Creat Clear Calc 59 Estimated GFR > 60 Glucose 102 POC Capillary Glucose 153 H Calcium 8.5 Magnesium 2.0 Total Bilirubin 1.3 AST 28 ALT 12 Alkaline Phosphatase 63 Total Protein 6.4 Albumin 3.4 L Prolactin 8.5
[2025-01-12] MEDS: ACETAMINOPHEN 325 MG TABLET 650 MG PO (21:39)
--- NOTE | 2025-01-12 22:51 | ECG_ITS ---
Test Date: 2025-01-12 23:07:58 Measurements Intervals [place] Rate: 78 P: 65 FL: 141 QRS: 10 QRSD: 81 T: 57 QT: 384 QTc: 439 Interpretive Statements SINUS RHYTHM POSSIBLE LEFT ATRIAL ENLARGEMENT [-0.1mV P-WAVE IN V1/V2] Compared to ECG 01/10/2025 21:27:17 Sinus bradycardia no longer present Electronically Signed On 01-13-2025 06:38:00 CDT by Davian Hernandez M.D.
[2025-01-12 23:38] LABS: Troponin I < 0.012 ng/mL (0.000-0.034)
[2025-01-12] MEDS: KETOROLAC 30 MG/ML VIAL (*BKC) IV PUSH (23:58)
[2025-01-12] MEDS: CALCIUM CARBONATE (TUMS) 500 MG (200 MG ELEMENTAL) PO (23:59)
[2025-01-13] VITALS (9 sets, daily range): BP systolic 158–180; BP diastolic 78–101; PULSE 68–82; RESP 14–18; TEMP 36.5–37; O2SAT 96–100
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
[2025-01-13] MEDS: ACETAMINOPHEN 325 MG TABLET 650 MG PO ×3 (02:34→15:11)
[2025-01-13 08:18] LABS: Ammonia 14 umol/L (9-30)
[2025-01-13 09:38] LABS: Thyroid Stimulating Hormone Reflex 2.500 uIU/mL (0.465-4.68)
[2025-01-13 09:41] LABS: Syphilis IgG/IgM Antibody Non-Reactive (Nonreactive)
[2025-01-13] MEDS: THIAMINE HCL 100 MG TABLET PO (09:47)
[2025-01-13] MEDS: MULTIVITAMINS THERAPEUTIC TAB (*BKC) 1 TABLET PO (09:47)
[2025-01-13] MEDS: FOLIC ACID 1 MG TABLET PO (09:47)
[2025-01-13] MEDS: PANTOPRAZOLE SODIUM IV 40 MG VIAL IV PUSH (09:47)
[2025-01-13 09:48] LABS: Albumin Level 3.3 g/dL (3.5-5.1); Anion Gap 6 mmol/L (4-12); Blood Urea Nitrogen 8 mg/dL (9-20); Calcium 8.8 mg/dL (8.4-10.2); Carbon Dioxide 22 mmol/L (22-30); Chloride 107 mmol/L (98-107); Estimated CRCL calculation 61 ml/min; Estimated Glomerular Filt Rate > 60; Glucose 110 mg/dL (65-110); Magnesium 1.6 mg/dL (1.6-2.3); Potassium 3.5 mmol/L (3.4-5.0); Sodium 135 mmol/L (137-145)
[2025-01-13 10:59] LABS: Vitamin B12 180.0 pg/mL (239-931)
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
--- NOTE | 2025-01-13 17:39 | P.PNNEUR_ITS ---
Progress Note: A&P Assessment and Plan (1) Seizure disorder: Code(s): G40.909 - Epilepsy, unspecified, not intractable, without status epilepticus Status: Acute (2) Left frontal lobe lesion: Code(s): G93.9 - Disorder of brain, unspecified Status: Acute Plan Subsequently I noted that he was seen by the neurosurgeon who thought that the finding in the left frontal area is probably benign and due to telangiectasia. She suggested a follow-up MRI with and without contrast in 3 months and follow up with her. I agree with these recommendations. Patient should continue the Keppra 1000 mg twice a day and should be followed up for compliance and to of the seizures by a neurologist or family physician. I have also reviewed the results of CT scan and MRI of the brain. 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 This was seen on the CT scan of the brain as well as MRI. Subjective Date/time seen: 01/13/25 17:39 Interval history: The patient is 59-year-old with history of seizure disorder. He was brought from the half-way to the hospital on account of having seizures. There is also history of drink alcohol. An MRI of the brain was performed which shows a possible mildly enhancing lesion in the left frontal area. This is being evaluated by the Neurosurgery. He is currently on Keppra 2000 mg a day. He denies any other additional symptoms. His urinalysis was positive for cannabis. Alcohol level was less than 10. Review of Systems Review of Systems: All systems reviewed & are unremarkable except as noted in HPI and below Exam Narrative: Fully conscious alert oriented to self place and person. No evidence of external trauma to the head or neck. Cranial nerves and motor system were within normal limits for no involuntary movements are seen. Objective Data Vital Signs Vital Signs: Vital Signs - 24 hr 01/12/25 20:42 01/12/25 21:11 01/12/25 21:41 Temperature 98.9 F Pulse Rate 78 78 71 Respiratory Rate 14 Blood Pressure 161/87 H 167/93 H Pulse Oximetry 100 01/13/25 04:44 01/13/25 09:45 01/13/25 09:46 Temperature 98.2 F Pulse Rate 68 76 Respiratory Rate 18 Blood Pressure 162/78 H 180/96 H Pulse Oximetry 100 01/13/25 14:00 01/13/25 14:00 01/13/25 14:05 Temperature 98.6 F 98.6 F Pulse Rate 71 71 75 Respiratory Rate 14 14 Blood Pressure 180/100 H 180/100 H 169/101 H Pulse Oximetry 100 100 100 01/13/25 14:10 Temperature Pulse Rate 80 Respiratory Rate Blood Pressure 158/94 H Pulse Oximetry 96 Intake/Output Intake/Output: Intake & Output 01/10/25 01/11/25 01/12/25 01/13/25 23:59 23:59 23:59 23:59 Intake Total 2740 407 668 Output Total 300 Balance 2440 407 668 Meds/Results Medications: Active Medications Generic Name Dose Route Start Last Admin Trade Name Freq PRN Reason Stop Dose Admin Acetaminophen 650 mg 01/11/25 08:57 01/13/25 15:11 Acetaminophen 325 Mg Tablet PO 650 mg Q4H PRN Administration Headache/fever Calcium Carbonate 200 mg 01/12/25 23:42 01/12/25 23:59 Calcium Carbonate (Tums) 500 Mg (200 Mg Elemental) PO 200 mg Q6H PRN Administration Indigestion Carvedilol 25 mg 01/11/25 15:05 01/13/25 09:46 Carvedilol 25 Mg Tablet PO 25 mg Q12HR SABINE Administration Diazepam 5 mg 01/11/25 02:02 Diazepam Inj (*Crx) 10 Mg/2 Ml Syringe IV PUSH Q2H PRN CIWA > 15 Folic Acid 1 mg 01/13/25 09:00 01/13/25 09:47 Folic Acid 1 Mg Tablet PO 1 mg DAILY SABINE Administration Hydralazine HCl 25 mg 01/11/25 14:35 01/13/25 15:11 Hydralazine Hcl 25 Mg Tablet PO 25 mg Q8HR SABINE Administration Levetiracetam 1,000 mg 01/11/25 21:00 01/13/25 09:46 Levetiracetam 500 Mg Tablet PO 1,000 mg Q12HR SABINE Administration Lisinopril 40 mg 01/12/25 09:00 01/13/25 09:46 Lisinopril 20 Mg Tablet PO 40 mg DAILY SABINE Administration Multivitamins Therapeutic 1 tablet 01/11/25 09:00 01/13/25 09:47 Multivitamins Therapeutic Tab (*Bkc) PO 1 tablet QAM SABINE Administration Pantoprazole Sodium 40 mg 01/11/25 02:20 01/13/25 09:47 Pantoprazole Sodium Iv 40 Mg Vial IV PUSH 40 mg DAILY SABINE Administration Thiamine HCl 100 mg 01/13/25 09:00 01/13/25 09:47 Thiamine Hcl 100 Mg Tablet PO 100 mg QAM SABINE Administration Radiology Results: ITS Impressions Head CT 01/11/25 08:23 IMPRESSION: 1. No acute intracranial pathology. Chest X-Ray 01/11/25 09:30 Impression: No acute cardiopulmonary abnormality. Brain MRI 01/12/25 15:15 IMPRESSION: 1. Small enhancing lesion in the left frontal lobe, which may be a cavernoma, telangiectasia, or neoplasm. Labs Labs: Laboratory Results - last 24 hr 01/12/25 01/13/25 01/13/25 23:03 07:46 07:50 Sodium 135 L Potassium 3.5 Chloride 107 Carbon Dioxide 22 Anion Gap 6 BUN 8 L Creatinine 0.98 Estim Creat Clear Calc 61 Estimated GFR > 60 Glucose 110 Calcium 8.8 Phosphorus 3.0 Magnesium 1.6 Ammonia 14 Troponin I < 0.012 Albumin 3.3 L Vitamin B12 180.0 L Vitamin D 25-Hydroxy 21.0 Folate 4.1 TSH (Reflex) 2.500 Syphilis IgG/IgM Ab Non-reactive
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
[2025-01-13] MEDS: CYANOCOBALAMIN INJ 1,000 MCG/ML VIAL 1000 MCG IM (18:42)
[2025-01-13] MEDS: HYDROcodone/acetaminophen (*CRX) 5-325 MG TABLET 1 TAB PO (20:37)
[2025-01-14 05:42] VITALS: BP 177/97; PULSE 78; RESP 18; TEMP 36.9; O2SAT 100
[2025-01-14] MEDS: FOLIC ACID 1 MG TABLET PO (09:28)
[2025-01-14] MEDS: CYANOCOBALAMIN 1,000 MCG TABLET 1000 MCG PO (09:28)
[2025-01-14] MEDS: MULTIVITAMINS THERAPEUTIC TAB (*BKC) 1 TABLET PO (09:28)
[2025-01-14] MEDS: THIAMINE HCL 100 MG TABLET PO (09:28)
[2025-01-14] MEDS: CHOLECALCIFEROL (VITAMIN D3) 25 MCG (1,000 UNITS) TABLET PO (09:29)
[2025-01-14] MEDS: PANTOPRAZOLE 40 MG TABLET PO (09:29)
[2025-01-14] MEDS: ACETAMINOPHEN 325 MG TABLET 650 MG PO (09:35)
[2025-01-14] MEDS: CYANOCOBALAMIN INJ 1,000 MCG/ML VIAL 1000 MCG IM (12:06)
--- NOTE | 2025-01-14 14:07 | PM.DS ---
DS: Admitting Diagnosis Discharge Date 01/14/25 Admitting Diagnosis Altered mental status DS: Discharge Diagnosis Discharge Diagnosis (1) Seizure: Code(s): R56.9 - Unspecified convulsions Status: Acute (2) Seizure disorder: Code(s): G40.909 - Epilepsy, unspecified, not intractable, without status epilepticus Status: Acute (3) Left frontal lobe lesion: Code(s): G93.9 - Disorder of brain, unspecified Status: Acute (4) Altered mental status: Qualifiers: Altered mental status type: unspecified Qualified Code(s): R41.82 - Altered mental status, unspecified Code(s): R41.82 - Altered mental status, unspecified Status: Acute (5) Lactic acidosis: Code(s): E87.20 - Acidosis, unspecified Status: Acute (6) Elevated CPK: Code(s): R74.8 - Abnormal levels of other serum enzymes Status: Acute (7) Hypertension: Code(s): I10 - Essential (primary) hypertension Status: Acute (8) B12 deficiency: Code(s): E53.8 - Deficiency of other specified B group vitamins Status: Acute DS: Summary Hospital Course Reason for hospitalization: 59yo male with hypertension otherwise unknown brought in from [facility] for possible seizure. Please see H&P for details. Hospital Course: Patient here for possible seizure. Blood pressure 224/95, improving to 154/91 after phenobarbital and Keppra in the ED. CPK 465, glucose 145. Urinalysis trace glucose, 1+ ketones and protein. UDS positive for cannabinoids all other negative. Serum alcohol level less than 10. Patient became more awake and alert and it was discovered that he has a seizure disorder and takes Keppra. He does not follow with a doctor and only gets his medications intermittently from ED visits. Neurology consulted. CT head negative. Loaded with Keppra 1000 mg IV x1 and then continued 1000mg Q12h. Alcohol level less than 10. He does have history of alcohol use. He drank alcohol 3 days prior to admission. Brain MRI showing a small enhancing lesion in the left frontal lobe with differential as cavernoma, telangiectasia or neoplasm. Neurosurgery was consulted and they suspected that this lesion is a benign and incidental lesion, possibly a telangiectasia and not related to his seizure. Multiple providers discussed with the patient the importance of taking his Keppra consistently to prevent breakthrough seizures. Plan for a follow-up MRI brain without and with contrast in about 3 months with neurosurgery. TSH, folate, ammonia WNL. B12 low at 180 and Vit D low at 21. B12 and Vit D was replaced. Lactic acidosis and total CK elevated felt related to seizure. Patient had a low grade temp at 100.1 once without recurrence. WBC normal. UA not consistent with UTI. CXR clear. Patient had pporly controlled HTN. We resumed his home medications and his BP better overall but still not well controlled. He was experiencing lightheadedness probably due to his BP poorly controlled chronically and that he is now having symptoms when BP drops to SBP 150-170. This symptom improved. He will need close monitoring and further titration as he tolerates. He was given a list of PCPs to follow up with. He was educated about the benefits of abstaining from alcohol and marijuana use. Patient feels well. He is oriented. He has been up ambulating. He overall did well and was able to be discharged on 01/14/2025. We reviewed his home medication list and I will provide refills. All questions answered. Did not request to know more information about medication side effects since these are home meds for him. Status at Discharge Cognitive/behavioral status at discharge: Stable Time Spent with Patient Time attestation: Total time spent providing and/or coordinating discharge services: 35 minutes Time spent: Greater than 30 minutes Exam Narrative: AF 98.4 177/97 78 18 100% ra Gen - NARD Chest - CTA bilaterally, nml RR CV - RRR S1/S2 Abd - Soft, NT/ND, Positive BS Ext - No pedal edema Neuro - Alert and oriented x4. Nonfocal exam. Psych - Nml mood and affect Skin - Warm and dry DS: Data Data Completed and Pending Labs on day of discharge: Preliminary micro results at discharge 01/11/25 00:44 Blood Culture - Preliminary Blood 01/11/25 02:50 Blood Culture - Preliminary Blood Discharge Plan Discharge Attending physician on discharge: Dixon Dowd Consulting providers: Del Wheeler; Mayela Blum Discharging Clinician: Dixon Dowd Anticipated Discharge Date/Time: 01/14/25 14:18 Patient Disposition: Home Activity: no driving and as tolerated Diet: heart healthy and low sodium Discharge Instructions: No driving Check blood pressure 1 to 2 times a day. Record and bring into your doctor for review. Call your doctor if your blood pressure is greater than 180/110. Take precautions to avoid falls. Rise slowly from a lying or sitting position. Pause before standing or walking. Contact your doctor or call 911 and come to the Emergency Room if you have lightheadedness with standing or other worrisome symptoms. Avoid NSAIDs (ibuprofen, naproxen, Aleve). Tylenol is safe to take. Follow-up with your primary care provider in 1-2 weeks. Please call for appointment. Follow-up with Neurology in 2-3 weeks. Please call for an appointment. Follow-up with Neurosurgery in 3 months for a repeat MRI brain then for an appointment to discuss the results as we spoke about Thank you for using [facility] for your health care needs. Patient Instructions: Antibiotic Form, How to Stop Smoking (ED), Electronic Cigarettes and Your Health (ED) Patient Language: Vietnamese Stand Alone Forms: General Discharge Information Follow-up/Referrals: Mayela Blum MD [Physician, Neurosurgery] - Call for Appointment Referral Note: Patient needs MRI in 3 months then an appointment with Del Lobo MD [Physician, Neurology] - Call for Appointment UNKNOWN,DOCTOR [Primary Care Provider] - Call for Appointment Discharge Medications: New cyanocobalamin (vitamin B-12) [Vitamin B-12] 1,000 mcg Tablet 1,000 mcg PO QAM Qty: 30 1RF cholecalciferol (vitamin D3) 25 mcg (1,000 unit) Tablet 25 mcg PO DAILY Qty: 30 1RF Continued carvedilol 25 mg tablet 25 mg PO Q12H Qty: 60 1RF hydralazine 25 mg tablet 25 mg PO Q8H Qty: 90 1RF lisinopril 40 mg tablet 40 mg PO DAILY Qty: 30 1RF levetiracetam 1,000 mg tablet 1,000 mg PO Q12H Qty: 60 1RF Date of admission: 01/11/25 03:35 Primary Care Provider: UNKNOWN,DOCTOR Admitting Provider: Margaux Garcia Attending physician on admission: Margaux Garcia Condition: Stable Hospitalist MIPS Heart Failure (Exclusion) Patient has history of Heart Transplant or Left Ventricular Assistive Device?: No IF YES, STOP HERE Heart Failure (Qualifier) Patient has current or prior documentation of LVEF less than or equal to 40%, or mod/servere depressed LVSF?: No IF NO, STOP HERE
--- OUTSIDE RECORDS SUMMARY | 2025-01-17 06:58 | XMS_ITS | Patient Health Record ---
Author Organization [facility] Address [address] [place] [address] Care Team Providers Care Administrative Services Assistant Name Role Phone Gita Rose Primary Care Provider [phone] Reason For Referral No Information Medications Medication SIG (Take, Route, Frequency, Duration) Notes Start Date End Date Status Zoloft 50 MG take 0.5 Tablet (25MG) dialy for 6 days then one tab daily. Oral ([facility]) 04/23/2011 Active CeleXA 20 MG take 1 tablet (20MG) by oral route every day Oral ([facility]) 04/23/2011 Active Enalapril Maleate 5 MG take 1 tablet (5M G) by oral route every day Oral ([facility]) 04/23/2011 Active hydroCHLOROthiazide 25 MG take 1 tablet (25MG) by oral route every day Oral ([facility]) 04/23/2011 Active Problems Problem Type SNOMED Code ICD Code Onset Dates Problem Status W/U Status Risk Notes Problem Depressive disorder (86605338) Depressive disorder, not elsewhere classified (311) 04/21/19 11 Active confirmed ([facility]) Added By: Su Suárez Problem Benign essential hypertension (9743885) Essential hypertension, benign (401.1) 04/23/19 12 Active confirmed ([facility]) Added By: Su Suárez Plan Of Treatment No Information
--- OUTSIDE RECORDS SUMMARY | 2025-01-17 06:58 | XMS_ITS | Clinical Summary ---
Author Organization [facility] Address [address] [place] [address] Care Team Providers Care Chief Information Officer Name Role Phone Cheryl Gurrola NP Primary Care Provider [phone] Allergies No known active allergies Medications folic acid (FOLVITE) 1 mg tablet Take 1 tablet (1 mg total) by mouth daily 30 tablet 11 10/10/2022 Active multivit uazsisiz-lwki-XN -calcium (THERA-M) 9 mg iron-400 mcg tabletIndication [...] - 12/18/2024 2:34 PM CDT Hospital Encounter [facility] [address] [place] [address] Claudia Kelly MD Hanson, Thomas S., MD Davis, MD Chilo Perez II, Narine, MD Seizure (HCC) (Primary Dx); Uncontrolled hypertension; Alcohol withdrawal syndrome with complication (HCC) Discharge Disposition: Left Against Medical Advice 10/27/2024 Documentation [facility] Warm Hand Off Program [address] [place], [place] [phone] Ashwin Clemente 10/26/2024 6:38 PM CDT - 10/29/2024 5:00 PM CDT Hospital Encounter [facility] 1 [place] [address] Bonifacio Inman MD Nations, Matthew Austin, DO Seizure (HCC) (Primary Dx) Discharge Disposition: Discharge to home or self care from Last 3 Months Medical History Medical History Date Comments Hypertension Social History Tobacco Use Types Packs/Day Years Used Date Smoking Tobacco: Never Tobacco Cessation:Counseling Given: Not Answered Alcohol Use Standard Drinks/Week Comments Yes 10 (1 standard drink = 0.6 oz pu re alcohol) [facility] Utilities Answer Date Recorded In the past [...] often do you attend chur ch or oriental orthodox services? 1 to 4 times per year 10/27/2024 Do you belong to any clubs o r organizations such as mosque groups, unions, fraternal or athletic groups, or [...] place to sleep or slept in a custodial (including now)? No 06/11/2023 Housing Stability Vital Sign Answer Edis e Recorded In the last 12 months, was t here a time when you were not able to pay the mortgage or rent on time? No 10/27/2024 In the past 12 months, how m any times have you moved where you were living? 0 10/27/2024 At any time in the past 12 m [facility], were you homeless or living in a custodial (including now)? 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 Source: [facility] Current Interpretive Data was last revised on [...] CDT Osman Arriaga MD LAB MICROBIOLOGY - [facility] Final Result [facility] (ANNELIESE) [facility] [place] [address] * (ABNORMAL) Drugs of Abuse Screen, Urine [...] last reviewed 2022. Urine Creatinine 289 mg/dL ELIZABETH CISNEROS (ANNELIESE) Comment: Interpretive Data [...] URINE ORDERABLES Final Resu lt JEANIE CISNEROS (ESMOND) [facility] [place] [address] * eGFR (12/18/2024 2:29 AM CDT) eGFR [...] BLOOD ORDERABLES Final Resu lt [facility] (ESMOND) [facility] [place] [address] * Differential, auto (12/18/2024 2:29 AM CDT) [...] BLOOD ORDERABLES Final Resu lt JEANIE CISNEROS (ESMOND) [facility] [place] [address] * (ABNORMAL) CBC with auto differential (12/18/2024 [...] NRBC abs 0.00 0.00 - 0.01 K/cumm [facility] (ANNELIESE) Blood 12/18/2024 2:29 AM CDT 12/18/2024 3:02 AM CDT us Osman Arriaga MD LAB BLOOD ORDERABLES Final Resu lt [facility] ([place]) [facility] [place] [address] * (ABNORMAL) Comprehensive metabolic panel (12/18/2024 2:29 AM CDT) Sodium 138 135 - 145 mmol/L [facility] ([place]) Potassium, pl 3.7 3.3 - 4.9 mmol/L [facility] ([place]) Chloride 106 97 - 110 mmol/L [facility] (ANNELIESE) CO2 21(L) 22 - 32 mmol/L [facility] ([place]) Anion gap 11 2 - 15 mmol/L [facility] ([place]) BUN 10 6 - 25 mg/dL [facility] ([place]) Creatinine 1.14 0.80 - 1.30 mg/dL [facility] (ANNELIESE) Glucose 87 70 - 199 mg/dL [facility] ([place]) Comment: Interpretive Data Fasting glucose [...] MD LAB BLOOD ORDERABLES Final Resu lt JENAIE [facility] (ANNELIESE) [address] [facility] [place] [address] * MA CRITICAL CARE ILL/INJURED PATIENT INIT 30-74 MIN [...] in interpretation, copy and paste this link: https://nrl.Oh BiBi.org/show/hsTrop Current Interpretive Data last revised 2020. Trop T hs delta 0 ng/L [facility] ER [facility] (ANNELIESE) Trop T hs interp Insignificant [facility] (ANNELIESE) Blood 12/17/2024 4:29 PM CDT 12/17/2024 4:35 PM CDT Claudia Kelly MD LAB BLOOD ORDERABLES Lynn l Result Performing Organization Address [facility]/State/ZIP Co de Phone Number [facility] (ANNELIES[place]) [address] [facility] Department [place] [address] * Troponin T high-sensitivity 2-hour (12/17/2024 2:50 PM CDT) Trop T hs <6 <=22 ng/L [facility] (ANNELIESE) Comment: Interpretive Data For further hscTnT resources including the diagnostic algorithm and an aid in interpretation, copy and paste this link: https://nrl.Oh BiBi.org/show/hsTrop Current Interpretive Data last revised 2020. Trop T hs delta 0 ng/L [facility] (ANNELIESE) Trop T hs interp Insignificant [facility] (ANNELIESE) Blood 12/17/2024 2:50 PM CDT 12/17/2024 2:53 PM CDT Claudia Kelly MD LAB BLOOD ORDERABLES Lynn l Result [facility] ANNELIESE [facility] [place] [address] * CT Head WO Contrast (12/17/2024 1:23 [...] Saqib Green M.D. RB: [place] Report ID: [id number] Reading Location: [id number] Procedure Note Saqib Green MD - 12/17/2024 [...] Saqib Green M.D. RB: [place] Report ID: [id number] Reading Location: [id number] Claudia Kelly MD IMG CT PROCEDURES Final [...] Saqib Green M.D. RB: [place] Report ID: [id number] Reading Location: [id number] Procedure Note Saqib Green MD - 12/17/2024 [...] Saqib Green M.D. RB: [place] Report ID: [id number] Reading Location: [place] [address] Claudia Kelly MD IMG XR PROCEDURES Final R esult * ECG 12 lead (12/17/2024 12:56 PM CDT) 12/17/2024 12:5 6 PM CDT Narrative [facility] - 12/17/2024 4:02 PM CDT Vent Rate: 70 bpm RR Interval: 851 msec MA Interval: 139 msec QRS Duration: 79 msec QT Interval: 413 msec QTC Interval: 434 msec P-R-T [place]: 121 - -52 - 106 degrees IMPRESSION: SINUS RHYTHM POSSIBLE LEFT ATRIAL ENLARGEMENT [-0.1mV P-WAVE IN V1/V2] LEFT ANTERIOR FASCICULAR BLOCK [QRS AXIS <= -45, QR IN I, RS IN II] NONSPECIFIC T-WAVE ABNORMALITY ABNORMAL ECG Compared to prior EKG, heart rate has decreased Electronically Signed By: Jerson Downs MD Claudia Kelly MD ECG ORDERABLES Final Res ult [facility] * Troponin T high-sensitivity series (baseline, 2hr, 4hr, 6hr) (12/17/2024 12:41 PM CDT) Trop T hs <6 <=22 ng/L JEANIE CISNEROS (ESMOND) Comment: Interpretive Data For further hscTnT resources including the diagnostic algorithm and an aid in interpretation, copy and paste this link: https://nrl.testcatalog.org/show/hsTrop Current Interpretive Data last revised 2020. Blood 12/17/2024 12:4 1 PM CDT 12/17/2024 12:48 PM CDT Claudia Kelly MD LAB BLOOD ORDERABLES Lynn l Result JEANIE CISNEROS (ESMOND) [address] [place] [address] [employer] [place] [address] * Sepsis Lactate w/ Reflex (12/17/2024 12:41 PM CDT) [facility] Sepsis Lactate 1.6 0.7 - 2.0 mmol/L Blood 12/17/2024 12:4 1 PM CDT 12/17/2024 12:47 PM CDT Claudia Kelly MD LAB BLOOD ORDERABLES Lynn l Result JEANIE CISNEROS (ESMOND) [address] [facility] [place] [place] [address] * eGFR (12/17/2024 12:41 PM CDT) Pathologist [facility] eGFR 86 >=60 mL/min/1. 73 m2 Comment: [...] MD LAB BLOOD ORDERABLES Lynn l Result [facility] (ESMOND) [facility] [place] [address] * Differential, auto (12/17/2024 12:41 PM CDT) [...] [facility] Department of Laboratories [place], [place] [id number] * (ABNORMAL) CBC with auto differential (12/17/2024 [...] 13.6 11.1 - 14.9 % [facility] ([place]) RDW SD 44.2 35.7 - 48.1 fL [facility] ([place]) NRBC abs 0.00 0.00 - 0.01 K/cumm [facility] ([place]) Blood 12/17/2024 12:4 1 PM CDT 12/17/2024 12:48 PM CDT Claudia Kelly MD LAB BLOOD ORDERABLES Lynn l Result Performing Organization Address [facility] Co de Phone Number JEANIE CISNEROS (ESMOND) 1 [facility] [place] [address] * (ABNORMAL) Levetiracetam level (12/17/2024 12:41 PM CDT) Levetiracetam (Keppra) <1.0(L) 10.0 - 40.0 mcg/mL [facility] Comment: ADDITIONAL INFORMATION This test was developed and its performance characteristics determined by [facility] in a manner consistent with CLIA requirements. This test has not been cleared or approved by the U.S. Food and Drug Administration. Test Performed by: [facility] [place] [address] Business Services Representative: Sandeep Navarrete Ph.D.; CLIA# [id number] Blood 12/17/2024 12:4 1 PM CDT 12/17/2024 2:33 PM CDT Claudia Kelly MD LAB BLOOD ORDERABLES Lynn l Result Performing Organization Address City/[facility]/ZIP Co de Phone Number JEANIE CISNEROS (ESMOND) 1 [facility] [place] [address] [facility] * Ethanol (12/17/2024 12:41 [...] MD LAB BLOOD ORDERABLES Lynn patton Result [facility] (ANNELIESE) [address] [facility] [place] [address] * Comprehensive metabolic panel (12/17/2024 12:41 PM [...] [facility] [place] [address] * EEG (10/27/2024 9:35 AM CDT) Anatomical [...] delta See Comment ng/L CE RNJOSE AMELIA (ESMOND) Comment:Inappropriate collec tion time to report a delta. Trop T hs pct delta See Comment % [facility]ERBAL[facility]ERO AMELIA (ESMOND) Comment:Inappropriate collec tion time to report a delta. Trop T hs interp See Comment C CHEY CISNEROS (ESMOND) Comment:Inappropriate collec tion time to report a delta. Blood 10/27/2024 4:31 AM CDT 10/27/2024 4:44 AM CDT Elyssa HERRERA LAB BLOOD ORDERABLES Lynn l Result JEANIE CISNEROS ([place]) [address] [facility] [place] [address] * Lactate (10/27/2024 4:31 AM CDT) Lactate 1.1 0.7 - 2.0 mmol/L Blood 10/27/2024 4:31 AM CDT 10/27/2024 4:44 AM CDT Bonifacio Inman MD LAB BLOOD ORDERABLES Fi nal Result JEANIE CISNEROS (ESMOND) [address] [place] [address] [place] [address] * eGFR (10/27/2024 4:31 AM CDT) eGFR [...] BLOOD ORDERABLES Lynn l Result [facility] ([place]) [facility] [place] [address] * Differential, auto (10/27/2024 4:31 AM CDT) [...] [facility] Department of Laboratories [place] [id number] * (ABNORMAL) CBC with auto differential (10/27/2024 [...] Comment:This result has been called to Chan Pfeiffer-[employer] OFFICER by [id number] on 10/27/2024 06:45:22. Patient was dehydrated when he came in and has been receiving fluids per RN. MCH 29.9 27.1 - 33.3 pg [facility] ([place]) MCHC 33.2 32.3 - 35.7 g/dL [facility] ([place]) RDW CV 15.3(H) 11.1 - 14.9 % [facility] ([place]) RDW SD 51.0(H) 35.7 - 48.1 fL [facility] (ANNELIESE) NRBC abs 0.00 0.00 - 0.01 K/cumm [facility] (ANNELIESE) Blood 10/27/2024 4:31 AM CDT 10/27/2024 4:44 AM CDT us Elyssa HERRERA LAB BLOOD ORDERABLES Lynn l Result [facility] (ESMOND) 1 [facility] [place] [address] * (ABNORMAL) Comprehensive metabolic panel (10/27/2024 4:31 AM CDT) Sodium 138 135 - 145 mmol/L Potassium, pl 3.8 3.3 - 4.9 mmol/L [facility] ([place]) Chloride 101 97 - 110 mmol/L [facility] ([place]) CO2 18(L) 22 - 32 mmol/L [facility] ([place]) Anion gap 19(H) 2 - 15 mmol/L [facility] (ANNELIESE) BUN 10 6 - 25 mg/dL [facility] ([place]) Creatinine 1.15 0.80 - 1.30 mg/dL [facility] ([place]) Glucose 106 70 - 199 mg/dL [facility] ([place]) Comment: Interpretive Data Fasting glucose [...] ORDERABLES Lynn l Result Performing Organization Address [facility] Co de Phone Number JEANIE CISNEROS (ESMOND) [address] [place] [address] * Troponin T high-sensitivity 4-hour (10/27/2024 12:36 [...] ORDERABLES Lynn l Result Performing Organization Address [facility]/ZIP Co de Phone Number JEANIE CISNEROS (ESMOND) [address] [facility] [place] [address] * (ABNORMAL) Urinalysis reflex to microscopic and [...] tendency for uric acid stone formation. Source: [facility] [employer] Current Interpretive Data was last revised on [...] [facility] Department of Laboratories [place], [place] [id number] * (ABNORMAL) Drugs of Abuse Screen, Urine [...] 10/27/2024 12:19 AM CDT Narrative JEANIE CISNEROS (ESMOND) - 10/27/2024 12:48 AM CDT Drug of Abuse screening is performed by immunoassay for medical purposes only. This is not to be used for Pain Management purposes. Elyssa HERRERA LAB URINE ORDERABLES Lynn patton Result JEANIE CISNEROS (ESM[place]) [address] [facility] [place] [address] * (ABNORMAL) Urinalysis, microscopic only (10/27/2024 12:13 AM CDT) WBC, ur 0-5 0 - 5 /HPF RBC, ur 3-5(A) 0 - 2 /HPF [facility] (ESMOND) Mucous, ur Present(A) JEANIE Isbell (ESM[place]) Culture Reflex Comment Reflex conditions for urine culture (WBC >10) not met. [facility] ([place]) Urine 10/27/2024 12:1 3 AM CDT 10/27/2024 12:19 AM CDT Elyssa HERRERA LAB URINE ORDERABLES Lynn l Result Performing Organization Address [facility]/ZIP Co de Phone Number [facility] (ESM[place]) [address] [facility] [place] [address] * Troponin T high-sensitivity 2-hour (10/26/2024 11:12 PM CDT) Pathologist [facility] Trop T hs 9 <=22 ng/L Comment: Interpretive Data For further hscTnT resources including the diagnostic algorithm and an aid in interpretation, copy and paste this link: https://nrl.testcatalog.org/show/hsTrop Current Interpretive Data last revised 2020. Trop T hs delta -3 ng/L CERN ER [facility] (ESMOND) Trop T hs interp Insignificant [facility] ([place]) Blood 10/26/2024 11:1 2 PM CDT 10/26/2024 11:16 PM CDT Elyssa HERRERA LAB BLOOD ORDERABLES Lynn l Result [facility] (ESMOND) 1 [facility] [place] [address] * (ABNORMAL) Sepsis Lactate w/ Reflex (10/26/2024 11:12 PM CDT) Pathologist [facility] Sepsis Lactate 4.4(C) 0.7 - 2.0 mmol/L Comment:Critical result call ed to and read back by _lori archaby (icu) on 10/26/2024 23:20:10 CDT to ovidio medrano. Blood 10/26/2024 11:1 2 PM CDT 10/26/2024 11:16 PM CDT Elyssa HERRERA LAB BLOOD ORDERABLES Lynn l Result Performing Organization Address City/[facility]/ZIP Co de Phone Number JEANIE CISNEROS (ESMOND) [address] [facility] [place] [address] * Troponin T high-sensitivity series (baseline, 2hr, [...] ORDERABLES Lynn l Result Performing Organization Address [facility] Co de Phone Number JEANIE CISNEROS (ESMOND) 1 [facility] [place] [address] * (ABNORMAL) Sepsis Lactate w/ Reflex (10/26/2024 8:22 PM CDT) Sepsis Lactate 8.5(C) 0.7 - 2.0 mmol/L Comment:Critical result call ed to and read back by Cesar Benz (ED) on 10/26/2024 20:27:55 CDT to [id number]. Blood 10/26/2024 8:22 PM CDT 10/26/2024 8:24 PM CDT us Elyssa HERRERA LAB BLOOD ORDERABLES Lynn l Result Performing Organization Address City/[facility]/ZIP Co de Phone Number [facility] ESMOND) 1 [facility] [place] [address] * eGFR (10/26/2024 8:22 PM CDT) eGFR [...] ORDERABLES Lynn l Result Performing Organization Address City/[facility]/ZIP Co de Phone Number [facility] (ANNELIESE) 1 [facility] [place] [address] * Ethanol (10/26/2024 8:22 PM CDT) Ethanol [...] [facility] [place] [address] * (ABNORMAL) Comprehensive metabolic panel (10/26/2024 8:22 [...] [facility] [place] [address] * CT Head WO Contrast (10/26/2024 7:47 [...] Bernard Washington M.D. MF: LESLY Report ID: [id number] Reading Location: [id number] Procedure Note Felix Bernard Imtiaz, DO - [...] Bernard Washington M.D. MF: LESLY Report ID: [id number] Reading Location: [id number] Elyssa HERRERA IMG CT PROCEDURES Final R [...] Bernard Washington M.D. MF: LESLY Report ID: [id number] Reading Location: [id number] Procedure Note Bernard Washington, DO - 10/26/2024 [...] Bernard Washington M.D. MF: LESLY Report ID: [id number] Reading Location: [id number] Elyssa HERRERA IMG XR PROCEDURES Final R esult * (ABNORMAL) Sepsis Lactate w/ Reflex (10/26/2024 7:09 PM CDT) Sepsis Lactate 23.0(C) 0.7 - 2.0 mmol/L Comment:Critical result call ed to and read back by Cesar Benz (ED) on 10/26/2024 19:23:49 CDT to [id number]. Blood 10/26/2024 7:09 PM CDT 10/26/2024 7:12 PM CDT us Elyssa HERRERA LAB BLOOD ORDERABLES Lynn pooja Result [facility] ([place]) [facility] [place] [address] * Differential, auto (10/26/2024 7:09 PM CDT) Neutrophil abs 2.59 1.50 - 6.50 K/cumm Imm gran abs 0.01 0.00 - 0.10 K/cumm [facility] ([place]) Lymphocyte abs 2.18 0.80 - 3.30 K/cumm [facility] ([place]) Monocyte abs 0.51 0.20 - 0.80 K/cumm [facility] ([place]) Eosinophil abs 0.01 0.00 - 0.50 K/cumm [facility] ([place]) Basophil abs 0.04 0.00 - 0.10 K/cumm [facility] (ANNELIESE) Neutrophil pct 48.5 % [facility] R [facility] (ESMOND) Comment: Interpretive Data Percent cell count reference ranges are not reported, since discordance with absolute values may lead to misinterpretation of CBC data. Current Interpretive Data was last revised on 2017. Imm gran pct 0.2 % [facility] (ESM[place]) Comment: Interpretive Data Percent cell count reference ranges are not reported, since discordance with absolute values may lead to misinterpretation of CBC data. Current Interpretive Data was last revised on 2017. Lymphocyte pct 40.8 % [facility] (ESMOND) Comment: Interpretive Data Percent cell count reference ranges are not reported, since discordance with absolute values may lead to misinterpretation of CBC data. Current Interpretive Data was last revised on 2017. Monocyte pct 9.6 % [facility] (ESMOND) Comment: Interpretive Data Percent cell count reference [...] [facility] [place] [address] * (ABNORMAL) CBC with auto differential (10/26/2024 [...] NRBC abs 0.00 0.00 - 0.01 K/cumm [facility] (ANNELIESE) Blood 10/26/2024 7:09 PM CDT 10/26/2024 7:13 PM CDT Elyssa HERRERA LAB BLOOD ORDERABLES Lynn l Result Performing Organization Address City/[facility]/ZIP Co de Phone Number JEANIE CISNEROS (ANNELIESE) 1 [facility] [place] [address] * ECG 12 lead (10/26/2024 6:52 PM CDT) 10/26/2024 6:52 PM CDT Narrative [facility] - 10/27/2024 10:19 AM CDT Vent Rate: 116 bpm RR Interval: 513 msec MA Interval: 130 msec QRS Duration: 83 msec QT Interval: 359 msec QTC Interval: 428 msec P-R-T [place]: 67 - 24 - 69 degrees IMPRESSION: SINUS TACHYCARDIA POSSIBLE LEFT ATRIAL ENLARGEMENT [-0.1mV P WAVE IN V1/V2] No significant change from prior EKG. Electronically Signed By: Dr Cain Batista Elyssa HERRERA ECG ORDERABLES Final Res ult Performing Organization Address [facility] Co de Phone Number [facility] from Last 3 Months Insurance [facility] [id number] [place] [address] [facility] Advance Directives For more information, please contact: [phone] * Full Code (Latest Code Status on [...] 4:22 PM 10/09/2022 5:05 PM Care Teams Chief Information Officer Relationship Specialty Start Date End Date Cheryl Gurrola NP [address] [address] PCP - General Family Medicine 06/10/23
--- OUTSIDE RECORDS SUMMARY | 2025-01-17 06:58 | XMS_ITS | Clinical Summary ---
Author Organization [facility] Address [address] [place] [id number] Care Team Providers Care Specimen Preparation Assistant Name Role Phone Unavailable Primary Care Provider [...]
--- OUTSIDE RECORDS SUMMARY | 2025-01-17 06:58 | XMS_ITS | Encounter Summary ---
Author Organization [facility] Address [address] [place] [address] Care Team Providers Care Sediment Remediation Consultant Name Role Phone Unavailable Primary Care Provider Unavailabl e Encounter Details Date Type Department Care Team (Late st Contact Info) Description 07/05/2017 Abstract [facility] CONVERSION [address] [place] [address] , Generic Conversion, Social History Tobacco Use [...]
--- OUTSIDE RECORDS SUMMARY | 2025-01-17 06:58 | XMS_ITS | Clinical Summary ---
Author Organization [facility] Address [address] [place] [address] Phone Care Team Providers Care Traffic Counter Name Role Phone Provider, None Primary Care [...] Insurance MEDICAID [employer] Care Teams Traffic Counter Relationship Specialty Start Date End Date Provider, None PA PCP - General 06/01/17
--- NOTE | 2025-01-18 09:20 | PC.NURSE ---
Blood cx show no growth. Dr. Nile myers.
== END 2025-01-14 16:30 | disposition home or self-care (01) ==
LOC: ANHED 01-11 03:39 → ANHIMU 01-11 05:40 → ANH3MEDSUR 01-12 14:16 → ANHIMU 01-17 06:56
PROVIDERS: Internal Medicine; Physician Assistant; Student in an Organized Health Care Education/Training Program; Admitting Provider General Practice; Emergency Provider Emergency Medicine; Visit Provider Internal Medicine
DX: R41.82 Altered mental status, unspecified (principal); G93.9 Disorder of brain, unspecified; G40.909 Epilepsy, unspecified, not intractable, without status epilepticus; E87.20 Acidosis, unspecified; R74.8 Abnormal levels of other serum enzymes; I10 Essential (primary) hypertension; E53.8 Deficiency of other specified B group vitamins; F17.290 Nicotine dependence, other tobacco product, uncomplicated
CPT/HCPCS: 36415; 70450; 70553; 71045; 80053; 80069; 80307; 81001; 82077; 82140; 82306; 82550; 82607; 82746; 82948; 83605; 83735; 84100; 84146; 84443; 84484; 85025; 85610; 85730; 86593; 87040; 93005; 96361; 96365; 96366; 96367; 96372; 96374; 96375; 99285; A9270; A9577; G0378; G0379; J0360; J1885; J1953; J2470; J2560; J3360; J3411; J3420; J7030; J7042